=== PATIENT | female | born 1990 | race Caucasian/White ===

== ENCOUNTER 2018-06-20 03:59 | Inpatient (IN) ==
--- OUTSIDE RECORDS SUMMARY | 2018-06-20 04:05 | External Medical Summary | Continuity of Care Document ---
:1990 Author Organization [facility] Address [address] [place], [place] [id number] Phone Allergies, Adverse Reactions, Alerts Substance Reaction Severity Status PENICILLIN Break Out Unknown Active Medications Medication Instructions Dosage Effective Dates Status Comments (start - stop) Plus take 1 tablet by Not Available - Active (calcium oral route every carbonate) 27 mg day iron-1 mg tablet Problems Condition Effective Dates (start - stop) Clinical Status Maternal care for oth - abnormality and damage, unsp Endo, nutritional and metab diseases - comp preg, third tri 32 weeks gestation of - Mild hyperemesis gravidarum - 8 weeks gestation of - Irregular Menses Mild hyperemesis gravidarum - Encounter for suprvsn of normal - , first trimester Vomiting of , unspecified Less than 8 weeks gestation of - Infection oth prt genitl trct in - , third trimester 31 weeks gestation of - Maternal care for oth - abnormality and damage, unsp 29 weeks gestation of - Matern care for oth or susp poor fetl - grth, 1st tri, unsp 13 weeks gestation of - Matern care for oth or susp poor fetl - grth, 2nd tri, unsp 18 weeks gestation of - Endo, nutritional and metab diseases - comp preg, second tri Encounter for suprvsn of normal - , second trimester 26 weeks gestation of - Encntr screen for infections w sexl - mode of transmiss Encounter for screening for oth - infec/parastc diseases Encounter for suprvsn of normal - , first trimester Encounter For Other Specified - Screening 9 weeks gestation of - Encounter for suprvsn of normal - , second trimester 22 weeks gestation of - Encounter for suprvsn of normal - , second trimester 18 weeks gestation of - Encounter for suprvsn of normal - , third trimester 34 weeks gestation of - Encounter for suprvsn of normal - , third trimester 32 weeks gestation of - Procedures Procedure Date Ultrasnd preg uterus, flwup/repeat Results Test Name Date and Time Measure Units Reference Range Abnormal Flag Comments Unknown Advance Directives Directive Yes / No Effective Date File Name Unknown Encounters Encounter Practice Location Reason(s) Diagnoses Date Provider Care Team Description For Visit Members Baldemar Seymour Encounter for May- Blake Referring In Womens suprvsn of normal 9-201 Jeanette. Provider: Health EUNICE, , third 8 [address] weeks Medical Deonna, 700 1522, gestation of [facility], , [facility] Dr GIORDANO, 120, Vicente 120, [id number], Lion Seymour, [place], [place], tel:[phone]. , [place]. tel: tel: [phone] Baldemar Seymour Encounter for Apr- Blake Referring In Womens suprvsn of normal 5-201 Jeanette. Provider: Health EUNICE, , third 8 [address] [id number] weeks Medical Deonna, 700 1522, gestation of [facility], , [facility] Dr GIORDANO, 120, Vicente 120, [id number], Lion Seymour, [place], [place], tel: [phone]. , . tel: tel: [phone] Baldemar Seymour Maternal care for Judah-2 Blake Referring In Womens Ultrasound oth Jeanette. Provider: Health EUNICE, abnormality and 8 [address] damage, unspEndo, Medical Deonna, 700 1522, nutritional and [facility], metab diseases , [facility] Dr GIORDANO, comp preg, third 120, Vicente 120, [id number], tri32 weeks Lion Seymour, gestation of [place]NA GIORDANO, tel: [phone]. , [place]. tel: tel: [phone] [facility] Infection oth prt Judah-1 Harris Referring In Womens genitl trct in [place]. 700 Provider: Martha DAWSON, , third 8 Medical Lilly PO Box [email or web address] weeks Center Deonna, 700 1522, gestation of Vicente Bashir [facility], 120, Center Lion [place], Vicente 120, , Lion GIORDANO, [id number] [place], tel: , [place]. [phone]. tel: tel: [phone] Baldemar Seymour Maternal care for Judah-0 Blake Referring In Womens oth Jeanette. Provider: Martha DAWSON, abnormality and 8 [address] damage, unsp29 Medical Deonna, 700 1522, weeks gestation [facility], of , [facility] Dr GIORDANO, 120, Vicente 120, , Lion Seymour, GIULIANA GIORDANO, tel:[phone]. , [place]. tel: tel: [phone] [facility] Endo, nutritional May- Blake Referring In Womens and metab Jeanette. Provider: Health EUNICE, diseases comp 8 [address] preg, second Medical Deonna, 700 1522, triEncounter for [facility], suprvsn of normal , [facility] Dr GIORDANO, , second 120, Vicente 120, [id number], [email or web address] weeks Lion Seymour, gestation of [place]UL[place]NA GIORDANO, tel: [phone]. , [place]. tel: tel: [phone] Baldemar Seymour Encounter for Apr-1 Blake Referring In Womens suprvsn of normal Jeanette. Provider: Martha DAWSON, , second 8 [address] [id number] weeks Medical Deonna, 700 1522, gestation of [facility], , [facility] Dr GIORDANO, 120, Vicente 120, [id number], Lion Seymour, [place], [place], tel: [phone]. , [place]. tel: tel: [phone] Baldemar Seymour Encounter for Mar-1 Blake Referring In Womens suprvsn of normal Jeanette. Provider: Martha DAWSON, , second 8 [address] [id number] weeks Medical Deonna, 700 1522, [facility] , [facility] Dr GIORDANO, 120, Vicente 120, [id number], Lion Seymour, [place], [place], tel: [phone]. , [place]. tel: tel: [phone] Baldemar Seymour Matern care for Mar-1 Blake Referring In Womens Ultrasound oth or susp poor - Jeanette. Provider: Martha DAWSON, fetl grth, 2nd 8 [address] tri, [id number] weeks Medical Deonna, 700 1522, gestation of [facility], , [facility] Dr GIORDANO, 120, Vicente 120, [id number], Lion Seymour, [place], [place], tel: [phone]. , [place]. tel: tel: [phone] Seymour Matern care for Feb-1 Blake Referring In Womens oth or susp poor 2- Jeanette. Provider: Martha DAWSON, fetl grth, 1st 8 [address] PO [address] tri, unsp13 weeks Medical Deonna, 700 1522, [facility], , [facility] Dr GIORDANO, 120, Vicente 120, [id number], Lion Seymour, [place] GIULIANA, tel: [phone]. , [place]. tel: tel: [phone] [facility] Mild hyperemesis Chris-1 Sobbing Referring In Womens gravidarumEncount 5-201 Chilango. Provider: Martha DAWSON, er for suprvsn of 8 700 Lilly PO Box normal , [facility] 700 1522, first [facility] [place] Dr GIORDANO, [address], , 120, Seymour, [place], tel: [place], [phone]. [phone], tel: [place]. [phone] tel: [phone] Baldemar Seymour Encntr screen for Chris-1 Blake Referring In Womens infections w sexl 5-201 Jeanette. Provider: Martha DAWSON, mode of 8 700 [address] transmissEncounte Medical Deonna, 700 1522, r for screening [facility], for oth , [facility] Dr GIORDANO, infec/parastc 120, Vicente 120, , diseasesEncounter Lion Seymour, for suprvsn of GIUL[place]NA, GIULIANA, tel: normal , [phone]. first , [place]. tel: trimesterEncounte tel: [phone] r For Other [id number] Specified Screening9 weeks gestation of [facility] Mild hyperemesis Chris-0 Blake Referring In Womens gravidarum8 weeks 8-201 Jeanette. Provider: Martha DAWSON, gestation of 8 700 [address] Box Medical Deonna, 700 1522, [place] [address], [facility] Dr GIORDANO, 120, Vicente 120, , Lion Seymour, GIULIANA GIORDANO, tel: [phone]. , [place]. tel: tel: [phone] Baldemar Seymour Vomiting of Chris-0 Blake Referring In Womens , 2-201 Jeanette. Provider: Martha DAWSON, unspecifiedLess 8 700 [address] PO Box than 8 weeks Medical Deonna, 700 1522, gestation of [place], , [facility] Dr GIORDANO, 120, Vicente 120, [id number], Lion Seymour, GIULIANA GIORDANO, tel: [phone]. , . tel: tel: [phone] Baldemar Seymour Irregular Menses Sep-2 Deonna Referring In Womens 0-201 Lilly. Provider: Health PA, 7 700 Lilly PO Box Medical Deonna, 700 1522, [place] [address], [facility] Dr GIORDANO, 120, Vicente 120, [id number], Lion Seymour, GIULIANA GIORDANO, tel: [phone]. , . tel: tel: [phone] Family History Family Member Diagnosis Age At Onset No family history of Diabetes No family history of Venous Thrombosis No family history of Epilepsy No family history of Lung Disease No family history of Colon Cancer No family history of Cardiovascular Disease No family history of Breast Cancer No family history of Pulmonary Embolism No family history of Hypertension No family history of Osteoporosis No family history of Uterine Cancer No family history of Stroke Mother Thyroid Disorder No family history of Kidney Disease No family history of Ovarian Cancer Immunizations Vaccine Date Status Comments Tdap completed Source: New Immunization Record Td (adult) preservative free completed Source: Other Provider Tdap completed Source: Other Provider Payers Payer name Insurance type Covered republican ID Authorization(s) [facility] [id number] [facility] [id number] Social History Type Description Quantity Date Captured Unknown Vital Signs Date / Height Weight BMI Pulse Blood Temperature Respiratory Body Head BMI Time: Rate Pressure Rate Surface Circumference percentile Area Unknown Chief Complaint And Reason For Visit Unknown Chief Complaint And Reason For Visit Reason For Referral Reason For Referral Unknown Plan Of Care Date Type Action Status Appointment Marianne Leigh BOOKED Future Order: Radiology Order Ultrasound OB Follow-up ([id number]) Ordered Future Order: Radiology Order Complete OB Ultrasound > 14 Weeks Ordered ([id number]) Date Type Problem Goal Intervention Status Start Date Unknown. History Of Present Illness Encounter Date Complaint History Of Present Illness This patient has no known history of present illness Functional Status Encounter Date Functional Assessment Cognitive Assessment Unknown Medications Administered Medication Instructions Dosage Effective Dates (start - stop) Status Comments Drug Treatment Unknown Instructions Date Instruction Additional Information gestational glucose lab screening indications for ultrasound nutrition and weight gain counseling, special diet toxoplasmosis precautions (cats / raw meat) sexual activity exercise influenza vaccine environmental / work hazards travel use of any medications (including supplements, vitamins, herbs, OTC drugs) domestic violence seat belt use HIV and other routine tests risk factors identified by history anticipated course of care childbirth classes / hospital facilities hospital registration genetic testing new ob handbook
--- OUTSIDE RECORDS SUMMARY | 2018-06-20 04:05 | External Medical Summary | Continuity of Care Document ---
:1990 Author Organization [facility] Address [address] [place], [place] [id number] Phone Allergies, Adverse Reactions, Alerts Substance Reaction Severity Status PENICILLIN Break Out Unknown Active Medications Medication Instructions Dosage Effective Dates Status Comments (start - stop) Plus take 1 tablet by Not Available - Active (calcium oral route every carbonate) 27 mg day iron-1 mg tablet Monistat 3 4 % - Active (200 mg)-2 %(9 gram)vaginal pack,prefil appl and cream Problems Condition Effective Dates (start - stop) Clinical Status Infection oth prt genitl trct in - , third trimester 31 weeks gestation of - Mild hyperemesis gravidarum - 8 weeks gestation of - Encounter for suprvsn of normal - , third trimester 32 weeks gestation of - Irregular Menses Mild hyperemesis gravidarum - Encounter for suprvsn of normal - , first trimester Vomiting of , unspecified Less than 8 weeks gestation of - Maternal care for oth - abnormality and damage, unsp 29 weeks gestation of - Maternal care for oth - abnormality and damage, unsp Endo, nutritional and metab diseases - comp preg, third tri 32 weeks gestation of - Matern care for [...] second trimester 18 weeks gestation of - Procedures Procedure Date OB Visit No Charge Results Test Name Date and Time Measure Units Reference Range Abnormal Flag Comments Unknown Advance Directives Directive Yes / No Effective Date File Name Unknown Encounters Encounter Practice Location Reason(s) Diagnoses Date Provider Care Team Description For Visit Members Baldemar Seymour Encounter for Apr- Blake Referring In Womens suprvsn of normal 5-201 Jeanette. Provider: Martha DAWSON, , third 8 [address] [id number] weeks Medical Deonna, 700 1522, gestation of [facility], , [facility] Dr GIORDANO, 120, Vicente 120, , Lion Baylis, [facility], [place], tel: [phone]. , . tel: tel: [phone] Baldemar Seymour Maternal care for Apr- Blake Referring In Womens Ultrasound oth 5-201 Jeanette. Provider: Health EUNICE, abnormality and 8 700 [address] PO Box damage, unspEndo, Medical Deonna, 700 1522, nutritional and [facility], metab diseases , [facility] Dr GIORDANO, comp preg, third 120, Vicente 120, [id number], tri32 weeks Lion Seymour, gestation of [place], [place], tel: [phone]. , [place]. tel: tel: [phone] Baldemar Seymour Infection oth prt Judah-1 Harris Referring In Womens genitl trct in [place]. 700 Provider: Martha DAWSON, , third 8 Medical Lilly PO Box weeks [place] Deonna, 700 1522, gestation of Vicente Bashir [facility], 120, Center Dr GIORDANO, Lion, Vicente 120, [id number], Lion GIORDANO, [id number] [place], tel: , [place]. [phone]. tel: tel: [phone] Baldemar Seymour Maternal care for Judah-0 Blake Referring In Womens oth Jeanette. Provider: Martha DAWSON, abnormality and 8 700 Lilly PO Box damage, unsp29 Medical Deonna, 700 1522, [facility] , [facility] Dr GIORDANO, 120, Vicente 120, [id number], Lion Seymour, GIULIANA GIORDANO, tel:[phone]. , [place]. tel: tel: [phone] Baldemar Seymour Endo, nutritional May-1 Blake Referring In Womens and metab Jeanette. Provider: Martha DAWSON, diseases comp 8 700 Lilly PO Box preg, second Medical Deonna, 700 1522, triEncounter for [facility], suprvsn of normal , [facility] Dr GIORDANO, , second 120, Vicente 120, [id number] weeks Lion Seymour, gestation of GIUL[place]NA GIORDANO, tel: [phone]. , [place]. tel: tel: [phone] Baldemar Seymour Encounter for Apr-1 Blake Referring In Womens suprvsn of normal Jeanette. Provider: Martha DAWSON, , second 8 700 Lilly PO Box [id number] weeks Medical Deonna, 700 1522, gestation of [facility], , [facility] Dr GIORDANO, 120, Vicente 120, [id number], Lion Seymour, GIULIANA GIORDANO, tel:[phone]. , [place]. tel: tel: [phone] Baldemar Seymour Encounter for Jan-1 Blake Referring In Womens suprvsn of normal Jeanette. Provider: Martha DAWSON, , second 8 700 Lilly PO Box [id number] weeks Medical Deonna, 700 1522, gestation of [facility], , [facility] Dr GIORDANO, 120, Vicente 120, [id number], Lion Seymour, [place], [place], tel: [phone]. , [place]. tel: tel: [phone] Baldemar Seymour Matern care for Jan- Blake Referring In Womens Ultrasound oth or susp poor Jeanette. Provider: Martha DAWSON, fetl grth, 2nd 8 700 Lilly PO Box tri, [id number] weeks Medical Deonna, 700 1522, gestation of [facility], , [facility] Dr GIORDANO, 120, Vicente 120, [id number], Lion Seymour, [place], [place], tel: [phone]. , [place]. tel: tel: [phone] Baldemar Seymour Matern care for Fe- Blake Referring In Womens oth or susp poor 2- Jeanette. Provider: Martha DAWSON, fetl grth, 1st 8 700 Lilly PO Box tri, unsp13 weeks Medical Deonna, 700 1522, gestation of [facility], , [facility] Dr GIORDANO, 120, Vicente 120, [id number], Lion Seymour, [place], [place], tel: [phone]. , [place]. tel: tel: [phone] Baldemar Seymour Mild hyperemesis Sobbing Referring In Womens gravidarumEncount 5-201 Chilango. Provider: Martha DAWSON, er for suprvsn of 8 700 Lilly PO Box normal , Medical Deonna, 700 1522, first trimester [facility], [facility] [place] Dr GIORDANO, [address], [id number], Shai, Seymour, [place], tel: [place], [phone]. [phone], tel: [place]. [phone] tel: [phone] Baldemar Seymour Encntr screen for Chris-1 Blake Referring In Womens infections w sexl 5-201 Jeanette. Provider: Martha DAWSON, mode of 8 700 Lilly PO Box transmissEncounte Medical Deonna, 700 1522, r for screening [facility], for otkhloe Bashir, [facility] Dr GIORDANO, infec/parastc 120, Vicente 120, , diseasesEncounter Lion Baylis, for suprvsn of [place], [place], tel: normal , [phone]. [facility] , . tel: trimesterEncounte tel: [phone] r For Other [id number] Specified Screening9 weeks gestation of [facility] Mild hyperemesis Chris-0 Blake Referring In Womens gravidarum8 weeks 8-201 Jeanette. Provider: Martha DAWSON, gestation of 8 700 Lilly [address] Box Medical Deonna, 700 1522, [place] [address], [facility] Dr GIORDANO, 120, Vicente 120, [id number], Lion Seymour, [place], tel: [phone]. , [place]. tel: tel: [phone] Baldemar Seymour Vomiting of Chris-0 Blake Referring In Womens , 2-201 Jeanette. Provider: Martha DAWSON, unspecifiedLess 8 700 Lilly PO Box than 8 weeks Medical Deonna, 700 1522, gestation of [facility], , [facility] Dr GIORDANO, 120, Vicente 120, [id number], Lion Seymour, [place], tel: [phone]. , [place]. tel: tel: [phone] Baldemar Seymour Irregular Menses Sep-2 Deonna Referring In Womens 0-201 Lilly. Provider: Martha DAWSON, 7 700 Lilly PO Box Medical Deonna, 700 1522, [address], [facility] Dr GIORDANO, 120, Vicente 120, [id number], Lion Seymour, GIULIANA GIORDANO, tel:[phone]. [phone] , . tel: tel: [phone] Family History Family Member Diagnosis Age At [...] Insurance type Covered republican ID Authorization(s) [facility] [id number] [facility] [id number] Social History Type Description Quantity Date Captured Alcohol Use Details No Caffeine Use Details Unknown Tobacco Use Status Unknown Smoking Status Never smoker Vital Signs Date / Height Weight BMI Pulse Blood Temperature Respiratory Body Head BMI Time: Rate Pressure Rate Surface Circumference percentile Area 204.80 36.2 129/79 2018 lbs 7 mm[Hg] 3:00 kg/m PM eter (2) Chief Complaint And Reason For Visit Unknown Chief Complaint And Reason For Visit Reason For Referral Reason For Referral Unknown Plan Of Care Date Type Action Status Appointment Marianne Leigh BOOKED Future Order: Radiology Order Ultrasound OB Follow-up ([id number]) Ordered Future Order: Radiology Order Complete OB Ultrasound > 14 Weeks Ordered ([id number]) Date Type Problem Goal Intervention Status Start [...]
--- OUTSIDE RECORDS SUMMARY | 2018-06-20 04:05 | External Medical Summary | Continuity of Care Document ---
:1990 Author Organization [facility] [employer] Address [address] [place], [place] [id number] Phone Allergies, Adverse Reactions, Alerts Substance Reaction Severity Status PENICILLIN Break Out Unknown Active Medications Medication Instructions Dosage Effective Dates Status Comments (start - stop) SUDAFED (unknown take 1 tablet by - Active strength) ORAL route every 6 hours as needed Plus take 1 tablet by Not Available - Active (calcium oral route every carbonate) 27 mg day iron-1 mg tablet Tums 200 mg chew 1 by Oral route Not Available - Active calcium (500 mg) as needed chewable tablet Problems Condition Effective Dates (start - stop) Clinical Status Encounter for suprvsn of normal - , third trimester 34 weeks gestation of - Mild hyperemesis gravidarum - 8 weeks gestation of - Encounter for suprvsn of normal - , second trimester 18 weeks gestation of - Encounter for suprvsn of normal - , third trimester 35 weeks gestation of - Irregular Menses Mild [...] third trimester 32 weeks gestation of - Encounter for suprvsn of normal - , third trimester Encounter For Screening For - Streptococcus B 36 weeks gestation of - Procedures Procedure Date OB Visit No Charge Results Test Name Date and Time Measure Units Reference Range Abnormal Flag Comments Unknown Advance Directives Directive Yes / No Effective Date File Name Unknown Encounters Encounter Practice Location Reason(s) Diagnoses Date Provider Care Team Description For Visit Members Baldemar Seymour Encounter for Blake Referring In Womens suprvsn of normal 4-201 Jeanette. Provider: Health PA, , third 8 [address] [facility] Medical Deonna, 700 1522, r For Center [facility] Jing, Screening For , [place] [facility] Dr GIORDANO, Streptococcus B36 120, Vicente 120, [id number], weeks gestation Lion [place], [place] of GIULIANA GIORDANO, tel: [phone]. [phone] , [place]. tel: tel: [phone] Baldemar Seymour Encounter for Shreyas-1 Blake Referring In Womens suprvsn of normal 7-201 Jeanette. Provider: Health EUNICE, , third 8 [address] [email or web address] weeks Medical Deonna, 700 1522, [facility], , [facility] Dr GIORDANO, 120, Vicente 120, [id number], [place], [place], [place], tel:[phone]. , [place]. tel: tel: [phone] Baldemar Seymour Encounter for Shreyas-0 Blake Referring In Womens suprvsn of normal 9-201 Jeanette. Provider: Martha DAWSON, , third 8 [address] [id number] weeks Medical Deonna, 700 1522, [facility], , [facility] Dr GIORDANO, 120, Vicente 120, , Lion [place], [place], [place], tel:[phone]. , [place]. tel: tel: [phone] Baldemar Seymour Encounter for Judah-2 Blake Referring In Womens suprvsn of normal 5-201 Jeanette. Provider: Martha DAWSON, , third 8 [address] [email or web address] weeks Medical Deonna, 700 1522, [facility], , [facility] Dr GIORDANO, 120, Vicente 120, , Lion [place], [place], [place], tel:[phone]. , [place]. tel: tel: [phone] Baldemar Seymour Maternal care for Judah-2 Blake Referring In Womens Ultrasound oth 5-201 Jeanette. Provider: Health EUNICE, abnormality and 8 [address] damage, unspEndo, Medical Deonna, 700 1522, nutritional and [facility], metab diseases , [facility] Dr GIORDANO, comp preg, third 120, Vicente 120, [id number], tri32 weeks Lion Se[place], gestation of GIUL[place]NA GIORDANO, tel:+ [phone]. , [place]. tel: tel: [phone] [facility] Infection oth prt Judah-1 Harris Referring In Womens genitl trct in [facility] 700 Provider: Martha DAWSON, , third 8 Medical Lilly PO Box [id number] weeks [place], 700 1522, gestation of Vicente Bashir [facility] Jing, 120, Center Dr GIORDANO, Lion, Vicente 120, , Lion GIORDANO, [id number] [place], tel: , [place]. [phone]. tel: tel: [phone] Baldemar Seymour Maternal care for Judah-0 Blake Referring In Womens oth Jeanette. Provider: Martha DAWSON, abnormality and 8 [address] damage, unsp29 Medical Deonna, 700 1522, weeks gestation [facility], of , [facility] Dr GIORDANO, 120, Vicente 120, , Lion Seymour, GIULIANA GIORDANO, tel:[phone]. , [place]. tel: tel: [phone] [facility]o, nutritional May-1 Blake Referring In Womens and metab Jeanette. Provider: Health EUNICE, diseases comp 8 700 [address] preg, second Medical Deonna, 700 1522, triEncounter for [facility], suprvsn of normal , [facility] Dr GIORDANO, , second 120, Vicente 120, [id number], weeks Lion [place], [place] gestation of GIULIANA GIORDANO, tel: [phone]. , [place]. tel: tel: [phone] Baldemar Seymour Encounter for Apr-1 Blake Referring In Womens suprvsn of normal Jeanette. Provider: Martha DAWSON, , second 8 [address] [email or web address] weeks Medical Deonna, 700 1522, gestation of [facility] Jing, , [facility] Dr GIORDANO, 120, Vicente 120, , Lion Se[place]our, GIULIANA GIORDANO, tel: [phone]. , [place]. tel: tel: [phone] Baldemar Seymour Encounter for Mar-1 Blake Referring In Womens suprvsn of normal Jeanette. Provider: Martha DAWSON, , second 8 [address] [id number] weeks Medical Deonna, 700 1522, gestation of [facility], , [facility] Dr GIORDANO, 120, Vicente 120, [id number], Lion [place], [place], [place], tel: [phone]. , [place]. tel: tel: [phone] Baldemar Seymour Matern care for Jan- Blake Referring In Womens Ultrasound oth or susp poor Jeanette. Provider: Martha DAWSON, fetl grth, 2nd 8 [address] tri, [id number] weeks Medical Deonna, 700 1522, gestation of [facility], , [facility] Dr GIORDANO, 120, Vicente 120, [id number], Lion Seymour, GI[place]NA GIORDANO, tel: [phone]. , [place]. tel: tel: [phone] Baldemar Seymour Matern care for Feb- Blake Referring In Womens oth or susp poor 2 Jeanette. Provider: Martha DAWSON, fetl grth, 1st 8 [address] tri, unsp13 weeks Medical Deonna, 700 1522, [facility], , [facility] Dr GIORDANO, 120, Vic[place] 120, [id number], Lion [place], [place], [place], tel: [phone]. , [place]. tel: tel: [phone] Baldemar Seymour Mild hyperemesis Chris- Sobbing Referring In Womens gravidarumEncount 5-201 Chilango. Provider: Martha DAWSON, er for suprvsn of 8 700 [address] PO Box normal , Medical Deonna, 700 1522, first trimester [facility] Jing, [facility], [place] [address] GIORDANO, [address], [id number], Shai, [place], [place], tel: [place], [phone]. [phone], tel: [place]. [phone] tel: [phone] Baldemar Seymour Encntr screen for Chris-1 Blake Referring In Womens infections w sexl 5-201 Jeanette. Provider: Martha DAWSON, mode of 8 700 [address] PO Box transmissEncounte Medical Deonna, 700 1522, r for screening [place], for oth , [facility] Center Dr GIORDANO, infec/parastc 120, Vicente 120, , diseasesEncounter [place], for suprvsn of GIULIANA GIORDANO, tel: normal , [phone]. [facility] , . tel: trimesterEncounte tel: [phone] r For Other [id number] Specified Screening9 weeks gestation of [facility] Mild hyperemesis Chris-0 Blake Referring In Womens gravidarum8 weeks 8-201 Jeanette. Provider: Martha DAWSON, gestation of 8 700 [address] PO Box Medical Deonna, 700 1522, [place] [address], [facility] Dr GIORDANO, 120, Vicente 120, [id number], Lion Seymour, GIUL[place]NA GIORDANO, tel: [phone]. , [place]. tel: tel: [phone] Baldemar Seymour Vomiting of Chris-0 Blake Referring In Womens , 2-201 Jeanette. Provider: Martha DAWSON, unspecifiedLess 8 700 [address] PO Box than 8 weeks Medical Deonna, 700 1522, gestation of [place], , [facility] Center Dr GIORDANO, 120, Vicente 120, [id number], Lion [place], [place], tel: [phone]. , [place]. tel: tel: [phone] Baldemar Seymour Irregular Menses Sep-2 Deonna Referring In Womens 0-201 Lilly. Provider: Martha DAWSON, 7 700 Lilly PO Box Medical Deonna, 700 1522, [place] [address], [place] Dr GI[place]NA, 120, Vicente 120, [id number], Lion Se[place]our, GIULIANA GIORDANO, tel: [phone]. [phone] , [place]. tel: tel: [phone] Family History Family Member Diagnosis Age At [...] Provider Payers Payer name Insurance type Covered green party ID Authorization(s) [facility] [id number] [facility] [id number] Social History Type Description Quantity Date Captured Alcohol Use Details No Caffeine Use Details Unknown Tobacco Use Status Unknown Smoking Status Never smoker Vital Signs Date / Height Weight BMI Pulse Blood Temperature Respiratory Body Head BMI Time: Rate Pressure Rate Surface Circumference percentile Area 213.30 37.7 / lbs 8 mm[Hg] 2:59 kg/m PM eter (2) Chief Complaint And Reason For Visit Unknown Chief Complaint And Reason For Visit Reason For Referral Reason For Referral Unknown Plan Of Care Date Type Action Status Appointment Marianne Leigh BOOKED Future Order: Radiology Order Ultrasound OB Follow-up ([id number]) Ordered Future Order: Radiology Order Complete OB Ultrasound > 14 Weeks Ordered ([id number]) Date Type Problem Goal Intervention Status Start Date Unknown. History Of Present Illness Encounter Date Complaint History Of Present Illness This patient has no known history of present illness Functional Status Encounter Date Functional Assessment Cognitive Assessment Unknown Medications Administered Medication Instructions Dosage Effective Dates (start - stop) Status Comments Drug Treatment Unknown Instructions Date Instruction Additional Information labor signs group B strep screening gestational glucose lab screening indications for ultrasound [...]
--- OUTSIDE RECORDS SUMMARY | 2018-06-20 04:05 | External Medical Summary | Continuity of Care Document ---
:1990 Author Organization [facility] Address [address] [place], [place] [id number] Phone Allergies, Adverse Reactions, Alerts Substance Reaction [...] second trimester 22 weeks gestation of - Mild hyperemesis gravidarum - 8 weeks gestation of - Irregular Menses Mild hyperemesis gravidarum - Encounter for suprvsn of normal - , first trimester Vomiting of , unspecified Less than 8 weeks gestation of - Matern care for oth or susp poor fetl - grth, 1st tri, unsp 13 weeks gestation of - Matern care for oth or susp poor fetl - grth, 2nd tri, unsp 18 weeks gestation of - Encntr screen for [...] For Visit Members Baldemar Seymour Encounter for Apr-1 Blake Referring In Womens suprvsn of normal Jeanette. Provider: Martha DAWSON, , second 8 700 [address] [id number] weeks Medical Deonna, 700 1522, gestation of [facility], , [facility] Dr GIORDANO, 120, Vicente 120, , Lion [place], [place]NA GIORDANO, tel: [phone]. , [place]. tel: tel: [phone] Baldemar Seymour Encounter for Mar-1 Blake Referring In Womens suprvsn of normal Jeanette. Provider: Martha DAWSON, , second 8 700 [address] [email or web address] weeks Medical Deonna, 700 1522, gestation of [facility], , [facility] Dr GIORDANO, 120, Vicente 120, [id number], Lion [place], GIUL[place]NA GIORDANO, tel: [phone]. , [place]. tel: tel: [phone] Baldemar Seymour Matern care for Mar-1 Blake Referring In Womens Ultrasound oth or susp poor Jeanette. Provider: Martha DAWSON, fetl grth, 2nd 8 700 Lilly PO Box tri, [id number] weeks Medical Deonna, 700 1522, gestation of [facility], , [facility] Dr GIORDANO, 120, Vicente 120, [id number], Lion [place], GIUL[place]NA GIORDANO, tel: [phone]. , [place]. tel: tel: [phone] Baldemar Seyomur Matern care for Feb-1 Blake Referring In Womens oth or susp poor Jeanette. Provider: Martha DAWSON fetl grth, 1st 8 700 [address] PO Box tri, unsp13 weeks Medical Deonna, 700 1522, [facility] , [facility] Dr GIORDANO, 120, Vicente 120, [id number], Lion [place], GIUL[place]NA GIULIANA, tel: [phone]. , [place]. tel: tel: [phone] [facility] Mild hyperemesis Chris-1 Sobbing Referring In Womens gravidarumEncount 5-201 Chilango. Provider: Martha DAWSON, er for suprvsn of 8 700 Lilly PO Box normal , [facility] 1522, first [facility] [place] [address] GIORDANO, [address], , 120, [place], [place], tel: [place], [phone]. [phone], tel: [place]. [phone] tel: [phone] Baldemar Seymour Encntr screen for Chris-1 Blake Referring In Womens infections w sexl 5-201 Jeanette. Provider: Martha DAWSON, mode of 8 700 Lilly PO Box transmissEncounte Medical Deonna, 700 1522, r for screening [facility], for oth , [facility] Center Dr GIORDANO, infec/parastc 120, Vicente 120, , diseasesEncounter Lion [place], for suprvsn of GIULIANA, GIULIANA, tel: normal , [phone]. first , [place]. tel: trimesterEncounte tel: [phone] r For Other [id number] Specified Screening9 weeks gestation of [facility] Mild hyperemesis Chris-0 Blake Referring In Womens gravidarum8 weeks 8-201 Jeanette. Provider: Martha DAWSON, gestation of 8 700 [address] PO Box Medical Deonna, 700 1522, [place] [address], [facility] Center Dr GIORDANO, 120, Vicente 120, , Lion Se[place]our, GIULIANA GIORDANO, tel: [phone]. , [place]. tel: tel: [phone] Baldemar Seymour Vomiting of Chris-0 Blake Referring In Womens , 2-201 Jeanette. Provider: Martha DAWSON, unspecifiedLess 8 700 Lilly PO Box than 8 weeks Medical Deonna, 700 1522, gestation of [place], , [facility] Dr GIORDANO, 120, Vic[place] 120, [id number], Lion [place], [place], GI[place], tel: [phone]. , . tel: tel: [phone] Baldemar Seymour Irregular Menses Sep-2 Deonna Referring In Womens 0-201 Lilly. Provider: Health PA, 7 700 Lilly PO Box Medical Deonna, 700 1522, [place] [address], [facility] Dr GIORDANO, 120, Vicente 120, [id number], Lion [place], [place], [place], tel: [phone]. , . tel: tel: [phone] Family History Family Member Diagnosis Age At [...] Ovarian Cancer Immunizations Vaccine Date Status Comments Td (adult) preservative free completed Source: Other Provider Payers Payer name Insurance type Covered green party ID Authorization(s) JIMBO GIORDANO [id number] Social History Type Description Quantity Date Captured Alcohol Use Details No Caffeine Use Details Unknown Tobacco Use Status Unknown Smoking Status Never smoker Vital Signs Date / Height Weight BMI Pulse Blood Temperature Respiratory Body Head BMI Time: Rate Pressure Rate Surface Circumference percentile Area 189.30 33.5 125/78 -2018 lbs 3 mm[Hg] 3:35 kg/m PM eter (2) Chief Complaint And Reason For Visit Unknown Chief Complaint And Reason For Visit Reason For Referral Reason For Referral Unknown Plan Of Care Date Type Action Status Appointment Pema Leigh BOOKED Future Order: Radiology Order Complete OB Ultrasound > 14 Weeks Ordered ([id number]) Date Type Problem Goal Intervention Status Start Date Unknown. History Of Present Illness Encounter Date Complaint History Of Present Illness This patient has no known history of present illness Functional Status Encounter Date Functional Assessment Cognitive Assessment Unknown Medications Administered Medication Instructions Dosage Effective Dates (start - stop) Status Comments Drug Treatment Unknown Instructions Date Instruction Additional Information indications for ultrasound nutrition and weight gain [...]
--- OUTSIDE RECORDS SUMMARY | 2018-06-20 04:05 | External Medical Summary | Continuity of Care Document ---
:1990 Author Organization [facility] [employer] [facility] Address [address] [place], [place] [id number] Phone Allergies, Adverse Reactions, Alerts Substance Reaction [...] Effective Dates (start - stop) Clinical Status Matern care for oth or susp poor fetl - grth, 2nd tri, unsp 18 weeks gestation of - Mild hyperemesis gravidarum - 8 weeks gestation of - Encounter for suprvsn of normal - , second trimester 18 weeks gestation of - Irregular Menses Mild hyperemesis gravidarum - Encounter for suprvsn of normal - , first trimester Vomiting of , unspecified Less than 8 weeks gestation of - Matern care for oth or susp poor fetl - grth, 1st tri, unsp 13 weeks gestation of - Encntr screen for infections w sexl - mode of transmiss Encounter for screening for oth - infec/parastc diseases Encounter for suprvsn of normal - , first trimester Encounter For Other Specified - Screening 9 weeks gestation of - Procedures Procedure Date Ultrasound exam of preg uterus, complete Results Test Name Date and Time Measure Units Reference Range Abnormal Flag Comments Unknown Advance Directives Directive Yes / No Effective Date File Name Unknown Encounters Encounter Practice Location Reason(s) Diagnoses Date Provider Care Team Description For Visit Members Baldemar Seymour Encounter for Jan- Blake Referring In Womens suprvsn of normal Jeanette. Provider: Martha DAWSON, , second 8 700 [address] [id number] weeks Medical Deonna, 700 1522, [facility] , [facility] Dr GIORDANO, 120, [place] 120, , Lion [place], GIULIANA GIORDANO, tel: [phone]. , [place]. tel: tel: [phone] Baldemar Seymour Matern care for Jan- Blake Referring In Womens Ultrasound oth or susp poor Jeanette. Provider: Martha DAWSON, fetl grth, 2nd 8 700 Lilly PO Box tri, unsp18 weeks Medical Deonna, 700 1522, [facility], , [facility] Dr GIORDANO, 120, Vicente 120, , Lion [place], GIULIANA GIORDANO, tel: [phone]. , [place]. tel: tel: [phone] Baldemar Seymour Matern care for Dec- Blake Referring In Womens oth or susp poor Jeanette. Provider: Martha DAWSON, fetl grth, 1st 8 700 Lilly PO Box tri, unsp13 weeks Medical Deonna, 700 1522, [facility], , [facility] Dr GIORDANO, 120, Vicente 120, [id number], Lion [place], GIULIANA GIORDANO, tel: [phone]. , [place]. tel: tel: [phone] Baldemar Seymour Mild hyperemesis Chris- Sobbing Referring In Womens gravidarumEncount 5-201 Chilango. Provider: Martha DAWSON, er for suprvsn of 8 700 Lilly PO Box normal , Medical Deonna, 700 1522, first trimester [facility], [facility] [place] [address] GIORDANO, [address], [id number], Shai, [place], [place], tel: [place], [phone]. [phone], tel: [place]. [phone] tel: [phone] Baldemar Seymour Encntr screen for Chris-1 Blake Referring In Womens infections w sexl 5-201 Jeanette. Provider: Martha DAWSON, mode of 8 700 Lilly PO Box transmissEncounte Medical Deonna, 700 1522, r for screening [place] [facility], for oth , [facility] Center Dr GIORDANO, infec/parastc 120, Vicente 120, , diseasesEncounter Lion [place], for suprvsn of GIULIANA GIORDANO, tel: normal , [phone]. [facility] , . tel: trimesterEncounte tel: [phone] r For Other [id number] Specified Screening9 weeks gestation of [facility] Mild hyperemesis Chris-0 Blake Referring In Womens gravidarum8 weeks 8-201 Jeanette. Provider: Martha ADWSON, gestation of 8 700 Lilly PO Box Medical Deonna, 700 1522, [place] [address], [facility] Dr GIORDANO, 120, Vicente 120, [id number], Lion Seymour, GIULIANA GIORDANO, tel: [phone]. , [place]. tel: tel: [phone] Baldemar Seymour Vomiting of Chris-0 Blake Referring In Womens , 2-201 Jeanette. Provider: Martha DAWSON, unspecifiedLess 8 700 Lilly PO Box than 8 weeks Medical Deonna, 700 1522, gestation of [place] [facility], , [facility] Dr GIORDANO, 120, Vic[place] 120, [id number], Lion [place], [place], tel: [phone]. , [place]. tel: tel: [phone] Baldemar Seymour Irregular Menses Sep-2 Deonna Referring In Womens 0-201 Lilly. Provider: Martha DAWSON, 7 700 Lilly PO Box Medical Deonna, 700 1522, [place] [address], [place] Dr GIULIANA, 120, Vicente 120, [id number], Lion Seymour, GIULIANA GIORDANO, tel:[phone]. [phone] , [place]. tel: tel: [phone] Family History Family Member Diagnosis Age At [...] Provider Payers Payer name Insurance type Covered democrat ID Authorization(s) [facility] [id number] Social History Type Description Quantity Date Captured [...] Marianne Leigh BOOKED Future Order: Radiology Order Complete OB Ultrasound > 14 Weeks Ordered ([id number]) Date Type Problem Goal Intervention Status Start [...]
--- OUTSIDE RECORDS SUMMARY | 2018-06-20 04:05 | External Medical Summary | Continuity of Care Document ---
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 Provider: Health PA, , third 8 [address] [email or web address] weeks Medical Deonna, 700 1522, gestation of [facility] [place], Dr, [facility] Dr [place], 120, Vicente 120, [id number], Lion Seymour, [place] GIORDANO, tel:[phone]. , [place]. tel: tel: [phone] Baldemar Seymour Streptococcus B Shreyas-3 Blake Referring In Womens carrier state 1-201 Jeanette. Provider: Martha DAWSON, complicating 8 700 [address] [facility] 700 1522, r for suprvsn of [facility], normal , , [facility] Dr GIORDANO, third [email or web address] 120, Vicente 120, [id number], weeks gestation Lion Seymour, [place] of [place] GIORDANO, tel:[phone]. , [place]. tel: tel: [phone] Seymour Encounter for Shreyas-2 Blake Referring In Womens suprvsn of normal 4-201 Jeanette. Provider: Martha DAWSON, , third 8 700 Lilly PO Box [facility] Medical Deonna, 700 1522, r For [facility], Screening For Dr, [facility] Dr GIORDANO, Streptococcus B36 120, Vicente 120, [id number], weeks gestation Lion Seymour, [place] of [place] GIORDANO, tel: [phone]. , [place]. tel: tel: [phone] Seymour Encounter for Shreyas-1 Blake Referring In Womens suprvsn of normal 7-201 Jeanette. Provider: Martha DAWSON, , third 8 700 [address] [email or web address] weeks Medical Deonna, 700 1522, gestation of [facility], , [facility] Dr GIORDANO, 120, Vicente 120, [id number], Lion Seymour, [place] GIORDANO, tel:[phone]. , [place]. tel: tel: [phone] Baldemar Seymour Encounter for Shreyas-0 Blake Referring In Womens suprvsn of normal 9-201 Jeanette. Provider: Martha DAWSON, , third 8 700 [address] [email or web address] weeks Medical Deonna, 700 1522, gestation of [facility], , [facility] Dr GIORDANO, 120, Vicente 120, [id number], Lion Seymour, [place], [place], tel:+ [phone]. , [place]. tel: tel: [phone] Baldemar Seymour Encounter for Judah-2 Blake Referring In Womens suprvsn of normal Jeanette. Provider: Health EUNICE, , third 8 700 [address] [email or web address] weeks Medical Deonna, 700 1522, gestation of [facility], , [facility] Dr GIORDANO, 120, Vicente 120, [id number], Lion Seymour, GIULIANA, [place], tel:+ [phone]. , [place]. tel: tel: [phone] Baldemar Seymour Maternal care for Judah-2 Blake Referring In Womens Ultrasound oth Jeanette. Provider: Health EUNICE, abnormality and 8 [address] damage, unspEndo, Medical Deonna, 700 1522, nutritional and [facility], metab diseases , [facility] Dr GIORDANO, comp preg, third 120, Vicente 120, [id number], tri32 weeks Lion Seymour, gestation of [place]NA GIORDANO, tel:[phone]. , [place]. tel: tel: [phone] Baldemar Seymour Infection ot prt Judah-1 Harris Referring In Womens genitl trct in [place] [address] Provider: Health EUNICE, , third 8 Medical Lilly PO Box [email or web address] weeks [place] Deonna, 700 1522, gestation of Dr [facility] [place], 120, Center Dr GIORDAON, Lion, Vicente 120, [id number], Lion GIORDANO, [id number] [place], tel: , [place]. [phone]. tel: tel: [phone] Baldemar Seymour Maternal care for Judah-0 Blake Referring In Womens oth Jeanette. Provider: Health EUNICE, abnormality and 8 700 [address] damage, unsp29 Medical Deonna, 700 1522, [facility], of , [facility] Dr GIORDANO, 120, Vicente 120, [id number], Lion Seymour, [place], [place], tel:+ [phone]. , [place]. tel: tel: [phone] Baldemar Seymour Endo, nutritional May- Blake Referring In Womens and metab 4-201 Jeanette. Provider: Health EUNICE, diseases comp 8 700 [address] PO Box preg, second Medical Deonna, 700 1522, triEncounter for [facility], suprvsn of normal , [facility] Dr GIORDANO, , second 120, Vicente 120, [id number], [id number] weeks Lion Seymour, gestation of [place], [place], tel: [phone]. , [place]. tel: tel: [phone] Baldemar Seymour Encounter for Apr- Blake Referring In Womens suprvsn of normal 6-201 Jeanette. Provider: Martha DAWSON, , second 8 700 [address] Box [email or web address] weeks Medical Deonna, 700 1522, gestation of [facility] [place], , [facility] Dr GIORDANO, 120, Vic[place] 120, [id number], Lion Seymour, [place], [place], tel:[phone]. , [place]. tel: tel: [phone] Baldemar Seymour Encounter for Jan- Blake Referring In Womens suprvsn of normal 9-201 Jeanette. Provider: Martha DAWSON, , second 8 700 Lilly PO Box [email or web address] weeks Medical Deonna, 700 1522, gestation of [facility] [place], , [facility] Dr GIORDANO, 120, Vic[place] 120, [id number], Lion Seymour, [place]UL[place]NA, [place], tel: [phone]. , [place]. tel: tel: [phone] Seymour Matern care for Blake Referring In Womens Ultrasound oth or susp poor 9-201 Jeanette. Provider: viktoriya Cline, 2nd 8 700 [address] PO Box tri, unsp18 weeks Medical Deonna, 700 1522, gestation of [facility], , [facility] Dr GIORDANO, 120, Vicente 120, [id number], Lion Seymour, GIULIANA GIORDANO, tel: [phone]. , [place]. tel: tel: [phone] Baldemar eSymour Matern care for Dec- Blake Referring In Womens oth or susp poor 2-201 Jeanette. Provider: viktoriya Cline, 1st 8 700 [address] PO [address] tri, unsp13 weeks Medical Deonna, 700 1522, gestation of [facility], , [facility] Dr GIORDANO, 120, Vicente 120, , Lion Seymour, GIULIANA GIORDANO, tel: [phone]. , [place]. tel: tel: [phone] Baldemar Seymour Mild hyperemesis Sobbing Referring In Womens gravidarumEncount 5-201 Chilango. Provider: Martha DAWSON, er for suprvsn of 8 700 Lilly PO Box normal , Medical Deonna, 700 1522, first trimester [facility] Dr GIORDANO, [address], , Lion Gibbons, GIULIANA Seymour, tel: GIUL[place]NA, [phone]. [phone], tel: [place]. [phone] tel: [phone] Baldemar Seymour Encntr screen for Blake Referring In Womens infections w sexl 5-201 Jeanette. Provider: Martha DAWSON, mode of 8 700 [address] PO Box transmissEncounte [facility] Deonna, 700 1522, r for screening [facility], for oth , [facility] Dr GIORDANO, infec/parastc 120, Vicente 120, , diseasesEncounter Lion Seymour, for suprvsn of GIUL[place]NA GIORDANO, tel: normal , [phone]. first , [place]. tel: trimesterEncounte tel: [phone] r For Other [phone] Specified Screening9 weeks gestation of [facility] Mild hyperemesis Chris-0 Blake Referring In Womens gravidarum8 weeks 8-201 Jeanette. Provider: Martha DAWSON, gestation of 8 700 Lilly PO Box Medical Deonna, 700 1522, [place] [address], [facility] Dr GIORDANO, 120, Vicente 120, [id number], Lion [place], [place], [place], tel: [phone]. , . tel: tel: [phone] [facility] Vomiting of Chris-0 Blake Referring In Womens , 2-201 Jeanette. Provider: Martha DAWSON, unspecifiedLess 8 700 Lilly PO Box than 8 weeks Medical Deonna, 700 1522, gestation of [place] [facility], , [facility] Dr GIORDANO, 120, Vicente 120, [id number], Lion [place], [place], [place], tel: [phone]. , . tel: tel: [phone] [facility] Irregular Menses Sep-2 Deonna Referring In Womens 0-201 Lilly. Provider: Martha DAWSON, 7 700 Lilly PO Box Medical Deonna, 700 1522, [place] [address], [facility] Dr GIORDANO, 120, Vicente 120, [id number], Lion Seymour, [place], [place], tel: [phone]. , . tel: tel: [phone] Family History Family Member Diagnosis Age At [...] Provider Payers Payer name Insurance type Covered constitution party ID Authorization(s) [facility] [id number] [facility] [id number] Social History Type Description Quantity Date Captured [...] Future Order: Radiology Order Ultrasound OB Follow-up ([id number]) Ordered Future Order: Radiology Order Complete OB Ultrasound > 14 Weeks Ordered ([id number]) Date Type Problem Goal Intervention Status Start [...]
--- OUTSIDE RECORDS SUMMARY | 2018-06-20 04:05 | External Medical Summary | Continuity of Care Document ---
:1990 Author Organization [facility] Address [address] [place], [place] [id number] Phone Allergies, Adverse Reactions, Alerts Substance Reaction Severity Status PENICILLIN Break Out Unknown Active Medications Medication Instructions Dosage Effective Dates Status Comments (start - stop) metoclopramide 10 mg take 1 (10MG) by - Active tablet oral route every 8 hours Diclegis 10 mg-10 mg take 1 tablet by - Active tablet,delayed oral route every release day in the morning, 1 tablet in the mid-afternoon, and 2 tablets at bedtime promethazine 25 mg take 1 tablet by 25 MG - Active tablet oral route every day at bedtime Plus take 1 tablet by Not Available - Active (calcium carbonate) oral route every 27 mg iron-1 mg day tablet Problems Condition Effective Dates (start - stop) Clinical Status Vomiting of , unspecified Less than 8 weeks gestation of - Mild hyperemesis gravidarum - 8 weeks gestation of - Irregular Menses Mild hyperemesis gravidarum - Encounter for suprvsn of normal - , first trimester Encntr screen for infections w sexl - mode of transmiss Encounter for screening for oth - infec/parastc diseases Encounter for suprvsn of normal - , first trimester Encounter For Other Specified - Screening 9 weeks gestation of - Procedures Procedure Date Unknown Results Test Name Date and Time Measure Units Reference Range Abnormal Flag Comments Unknown Advance Directives Directive Yes / No Effective Date File Name Unknown Encounters Encounter Practice Location Reason(s) Diagnoses Date Provider Care Team Description For Visit Members Baldemar Seymour Mild hyperemesis Chris-1 Sobbing Referring In Womens gravidarumEncounter 5-201 Ch[place]. Provider: Martha DAWSON, for suprvsn of 8 700 [address] PO Box normal , Medical Deonna, 700 1522, first trimester [place] [facility] [place] [address] GIORDANO, [address], , Shai, Seymour, GIULIANA Seymour, tel: GIULIANA, [phone], tel:+ [phone]. [phone] tel: [phone] [facility] Encntr screen for Nov-1 Blake Referring In Womens infections w sexl 5-201 Jeanette. Provider: Martha DAWSON, mode of 8 700 Lilly PO Box [facility] 700 1522, for screening for [facility] Jing, [facility] infec/parastc , [facility] Dr GIORDANO, [facility], Vicente 120, , for suprvsn of Lion Seymour, normal , [place], [place], tel: first [phone]. [id number] [facility]. tel: For Other Specified tel: [phone] Screening9 weeks gestation of [facility] Mild hyperemesis Chris-0 Blake Referring In Womens gravidarum8 weeks 8-201 Jeanette. Provider: Martha DAWSON, gestation of [address] [facility], 700 1522, [place] [address], [facility] [address] GIORDANO, 120, Vicente 120, , SeymourLion, GIULIANA GIORDANO, tel:[phone]. , [place]. tel: tel: [phone] Baldemar Seymour Chris-0 Blake In Womens 8-201 Jeanette. Martha DAWSON, 8 700 PO Box Medical 1522, [place] Dr Jing, [facility] GIULIANA, 120, [id number], [place] Seymour, tel:[phone] , [place]. tel: [phone] Baldemar Seymour Vomiting of Chris-0 Blake Referring In Womens , 2-201 Jeanette. Provider: Martha DAWSON, unspecifiedLess 8 700 Lilly PO Box than 8 weeks Medical Deonna, 700 1522, gestation of [place] [address], [facility] Dr GIORDANO, 120, Vic[place] 120, [id number], Lion Seymour, [place], [place], tel: [phone]. , [place]. tel: tel: [phone] Baldemar Seymour Irregular Menses Sep-2 Deonna Referring In Womens 0-201 Lilly. Provider: Martha DAWSON, 7 700 Lilly PO Box Medical Deonna, 700 1522, [place] [address], [facility] Dr GIORDANO, 120, Vicente 120, [id number], Lion Seymour, [place], [place], tel: [phone]. , . tel: tel: [phone] Family History Family Member Diagnosis Age At [...] name Insurance type Covered republican ID Authorization(s) [facility] [id number] Social History Type Description Quantity Date Captured [...] Status Appointment Marianne Leigh BOOKED Future Order: Lab Order Pap Smear With HPV Reflex If ASCUS Ordered ([id number]), Collected on: Date Type Problem Goal Intervention Status Start [...]
--- OUTSIDE RECORDS SUMMARY | 2018-06-20 04:05 | External Medical Summary | Continuity of Care Document ---
:1990 Author Organization [facility] Address [address] [place], [place] [id number] Phone Allergies, Adverse Reactions, Alerts Substance Reaction Severity Status PENICILLIN Break Out Unknown Active Medications Medication Instructions Dosage Effective Dates Status Comments (start - stop) SUDAFED (unknown take 1 tablet by - Active strength) ORAL route every 6 hours as needed Tums 200 mg chew 1 by Oral route Not Available - Active calcium (500 mg) as needed chewable tablet Plus take 1 tablet by Not Available - Active (calcium oral route every carbonate) 27 mg day iron-1 mg tablet Problems Condition Effective Dates (start - stop) Clinical Status Encounter for suprvsn of normal - , third trimester 35 weeks gestation of - Mild hyperemesis gravidarum [...] Procedures Procedure Date OB Visit No Charge - MACHINE ICER Results Test Name Date and Time Measure Units Reference Range Abnormal Flag Comments Unknown Advance Directives Directive Yes / No Effective Date File Name Unknown Encounters Encounter Practice Location Reason(s) Diagnoses Date Provider Care Team Description For Visit Members Baldemar Shah Blake Referring In Womens carrier state Jeanette. Provider: Health EUNICE, complicating 8 700 Lilly [facility], 700 1522, r for suprvsn of [facility], normal , , [place] [address] GIORDANO, third 120, Vicente 120, [id number], weeks gestation Lion Seymour, [place] of [place] GIORDANO, tel: [phone]. , [place]. tel: tel: [phone] Baldemar Seymour Encounter for Shreyas-2 Blake Referring In Womens suprvsn of normal 4-201 Jeanette. Provider: Martha DAWSON, , third 8 700 Lilly PO Box trimesterEncounte Medical Deonna, 700 1522, r For [facility], Screening For , [facility] Dr GIORDANO, Streptococcus B36 120, Vicente 120, , weeks gestation Lion Seymour, [place] of [place] GIORDANO, tel: [phone]. , [place]. tel: tel: [phone] Baldemar Seymour Encounter for Shreyas-1 Blake Referring In Womens suprvsn of normal 7-201 Jeanette. Provider: Health EUNICE, , third 8 700 Lilly PO Box weeks Medical Deonna, 700 1522, gestation of [facility], , [facility] Dr GIORDANO, 120, Vicente 120, , Lion Seymour, [place] GIULIANA GIORDANO, tel: [phone]. , [place]. tel: tel: [phone] Seymour Encounter for Shreyas-0 Blake Referring In Womens suprvsn of normal 9-201 Jeanette. Provider: Martha DAWSON, , third 8 700 Lilly PO Box [email or web address] weeks Medical Deonna, 700 1522, gestation of [facility], , [facility] Dr GIORDANO, 120, Vicente 120, , Lion Seymour, [place] GIULIANA GIORDANO, tel: [phone]. , [place]. tel: tel: [phone] Seymour Encounter for Judah-2 Blake Referring In Womens suprvsn of normal 5-201 Jeanette. Provider: Health EUNICE, , third 8 700 Lilly PO Box [id number] weeks Medical Deonna, 700 1522, gestation of [facility], , [facility] Dr GIORDANO, 120, Vic[place] 120, [id number], Lion Seymour, GIULIANA GIORDANO, tel: [phone]. , [place]. tel: tel: [phone] [facility] Maternal care for Judah-2 Blake Referring In Womens Ultrasound oth - Jeanette. Provider: Health PA, abnormality and 8 700 Lilly PO Box damage, unspEndo, Medical Deonna, 700 1522, nutritional and [facility], metab diseases , [facility] Dr GIORDANO, comp preg, third 120, Vicente 120, [id number], tri32 weeks Lion Seymour, gestation of GIULIANA, [place]NA, tel:+ [phone]. , [place]. tel: tel: [phone] [facility] Infection oth prt Judah-1 Harris Referring In Womens genitl trct in [facility] 700 Provider: Health EUNICE, , third 8 Medical Lilly PO Box [email or web address] weeks [place] Deonna, 700 1522, gestation of Dr, [facility] Jing, 120, Center Lion [place], Vicente 120, [id number], Lion GIORDANO, [id number] [place], tel: , [place]. [phone]. tel: tel: [phone] [facility] Maternal care for Judah-0 Blake Referring In Womens oth Jeanette. Provider: Health EUNICE, abnormality and 8 700 Lilly PO Box damage, unsp29 Medical Deonna, 700 1522, weeks gestation [facility] Jing, of , [facility] Dr GIORDANO, 120, Vicente 120, [id number], Lion Seymour, GIULIANA GIORDANO, tel: [phone]. , [place]. tel: tel: [phone] [facility] Endo, nutritional May-1 Blake Referring In Womens and metab - [place]. Provider: Health EUNICE, diseases comp 8 700 Lilly PO Box preg, second Medical Deonna, 700 1522, triEncounter for [facility], suprvsn of normal , [facility] Dr GIORDANO, , second 120, Vicente 120, [id number], [email or web address] weeks Lion Seymour, gestation of GIULIANA, GIUL[place]NA, tel: [phone]. , [place]. tel: tel: [phone] Baldemar Seymour Encounter for Apr-1 Blake Referring In Womens suprvsn of normal 6-201 Jeanette. Provider: Health EUNICE, , second 8 700 Lilly PO Box [id number] weeks Medical Deonna, 700 1522, [facility], , [facility] Dr GIORDANO, 120, Vicente 120, [id number], Lion Seymour, GIULIANA GIORDANO, tel: [phone]. , [place]. tel: tel: [phone] Seymour Encounter for Mar-1 Blake Referring In Womens suprvsn of normal 9-201 Jeanette. Provider: Martha DAWSON, , second 8 700 Lilly PO Box weeks Medical Deonna, 700 1522, gestation of [facility] [place], , [facility] Dr GIORDANO, 120, Vicente 120, [id number], Lion Seymour, GIULIANA GIORDANO, tel: [phone]. , [place]. tel: tel: [phone] Seymour Matern care for Mar-1 Blake Referring In Womens Ultrasound oth or susp poor 9-201 Jeanette. Provider: Health EUNICE, fetl grth, 2nd 8 700 Lilly PO Box tri, unsp18 weeks Medical Deonna, 700 1522, gestation of [facility] Jing, , [facility] Dr GIORDANO, 120, Vicente 120, [id number], Lion Seymour, [place] GIULIANA GIORDANO, tel:[phone]. , [place]. tel: tel: [phone] Seymour Matern care for Feb-1 Blake Referring In Womens oth or susp poor 2-201 Jeanette. Provider: Martha DAWSON, fetl grth, 1st 8 700 Lilly PO Box tri, unsp13 weeks Medical Deonna, 700 1522, gestation of [facility] Jing, , [facility] Dr GIORDANO, 120, Vicente 120, [id number], Lion Seymour, GIUL[place]NA GIORDANO, tel: [phone]. , [place]. tel: tel: [phone] Baldemar Seymour Mild hyperemesis Chris-1 Sobbing Referring In Womens gravidarumEncount 5-201 [place]. Provider: Martha DAWSON, er for suprvsn of 8 700 Lilly PO Box normal , Medical Deonna, 700 1522, first trimester [facility] Jing, [facility], [place] [address] GIORDANO, [address], [id number], Shai, Seymour, GIULIANA Seymour, tel: GIULIANA, [phone]. [phone], tel: [place]. [phone] tel: [phone] Baldemar Seymour Encntr screen for Chris-1 Blake Referring In Womens infections w sexl 5-201 Jeanette. Provider: Martha DAWSON, mode of 8 700 Lilly PO Box transmissEncounte Medical Deonna, 700 1522, r for screening [place], for oth , [facility] Dr GIORDANO, infec/parastc 120, Vicente 120, , diseasesEncounter Lion [place], for suprvsn of GIULIANA GIORDANO, tel: normal , [phone]. [facility] , . tel: trimesterEncounte tel: [phone] r For Other [id number] Specified Screening9 weeks gestation of [facility] Mild hyperemesis Chris-0 Blake Referring In Womens gravidarum8 weeks 8-201 Jeanette. Provider: Martha DAWSON, gestation of 8 700 Lilly PO Box Medical Deonna, 700 1522, [place] [address], [facility] Dr GIORDANO, 120, Vicente 120, [id number], Lion Seymour, GIUL[place]NA GIORDANO, tel:[phone]. , [place]. tel: tel: [phone] [facility] Vomiting of Nov- Blake Referring In Womens , 2-201 Jeanette. Provider: Martha DAWSON, unspecifiedLess 8 700 Lilly PO Box than 8 weeks Medical Deonna, 700 1522, gestation of [facility] Jing, , [facility] Dr GIORDANO, 120, Vicente 120, [id number], Lion Seymour, [place], [place], tel: [phone]. , . tel: tel: [phone] [facility] Irregular Menses Jul- Deonna Referring In Womens 0-201 Lilly. Provider: Martha DAWSON, 7 700 Lilly PO Box Medical Deonna, 700 1522, [place], , [facility] Dr GIORDANO, 120, Vicente 120, [id number], Lion Seymour, [place], [place], tel: [phone]. , . tel: tel: [phone] Family History Family Member Diagnosis Age At [...] Insurance type Covered constitution party ID Authorization(s) [facility] [id number] [facility] [id number] Social History Type Description Quantity Date Captured Alcohol Use Details No Caffeine Use Details Unknown Tobacco Use Status Unknown Smoking Status Never smoker Vital Signs Date / Height Weight BMI Pulse Blood Temperature Respiratory Body Head BMI Time: Rate Pressure Rate Surface Circumference percentile Area 213.30 37.7 137/83 -2018 lbs 8 mm[Hg] 11:08 kg/m AM eter (2) Chief Complaint And Reason For Visit Unknown Chief Complaint And Reason For Visit Reason For Referral Reason For Referral Unknown Plan Of Care Date Type Action Status Appointment Marianne Leigh BOOKED Future Order: Radiology Order Ultrasound OB Follow-up ([id number]) Ordered Future Order: Radiology Order Complete OB Ultrasound > 14 Weeks Ordered ([id number]) Date Type Problem Goal Intervention Status Start [...]
--- OUTSIDE RECORDS SUMMARY | 2018-06-20 04:05 | External Medical Summary | Continuity of Care Document ---
:1990 Author Organization [facility] Address [address] [place], [place] [id number] Phone Allergies, Adverse Reactions, Alerts Substance Reaction Severity Status PENICILLIN Break Out Unknown Active Medications Medication Instructions Dosage Effective Dates Status Comments (start - stop) Plus take 1 tablet by Not Available - Active (calcium oral route every carbonate) 27 mg day iron-1 mg tablet Monistat 3 4 % - No Longer (200 mg)-2 %(9 Active gram)vaginal pack,prefil appl and cream Problems Condition Effective Dates (start - stop) Clinical Status Encounter for suprvsn of normal - , third trimester 32 weeks gestation of - Mild hyperemesis [...] third trimester 34 weeks gestation of - Procedures Procedure Date Immuniz admnin, 1 vac, sngl/combo 19 Yrs + TDAP VACCINE >7 IM OB Visit No Charge Results Test Name [...] , third 8 [address] [email or web address] weeks Medical Deonna, 700 1522, [facility], , [facility] Dr GIORDANO, 120, Vicente 120, [id number], Lion Seymour, GIULIANA GIORDANO, tel:[phone]. [phone] , [place]. tel: tel: [phone] Baldemar Seymour Encounter for Blake Referring In Womens suprvsn of normal 5-201 Jeanette. Provider: Marhta DAWSON, , third 8 [address] [email or web address] weeks Medical Deonna, 700 1522, gestation of [facility], , [facility] Dr GIORDANO, 120, Vicente 120, [id number], Lion Seymour, [place], [place], tel: [phone]. , [place]. tel: tel: [phone] Baldemar Seymour Maternal care for Judah-2 Blake Referring In Womens Ultrasound oth 5- Jenaette. Provider: Health EUNICE, abnormality and 8 [address] damage, unspEndo, Medical Deonna, 700 1522, nutritional and [facility], metab diseases , [facility] Dr GIORDANO, comp preg, third 120, Vicente 120, [id number], tri32 weeks Lion Seymour, gestation of [place], GI[place]IANA, tel: [phone]. , [place]. tel: tel: [phone] [facility] Infection oth prt Judah-1 Harris Referring In Womens genitl trct in [facility] 700 Provider: Martha DAWSON, , third 8 Medical Lilly PO Box [id number] weeks [place] Deonna, 700 1522, gestation of Dr [facility], 120, Center Dr GIORDANO, Lion, Vicente 120, [id number], Lion GIORDANO, [id number] [place], tel: , [place]. [phone]. tel: tel: [phone] Baldemar Seymour Maternal care for Judah-0 Blake Referring In Womens oth - Jeanette. Provider: Martha DAWSON, abnormality and 8 [address] damage, unsp29 Medical Deonna, 700 1522, weeks gestation [facility], of , [facility] Dr GIORDANO, 120, Vicente 120, [id number], Lion Seymour, GIULIANA GIORDANO, tel:[phone]. , [place]. tel: tel: [phone] [facility] Endo, nutritional May-1 Blake Referring In Womens and metab Violet. Provider: Health EUNICE, diseases comp 8 700 Lilly [address] Box preg, second Medical Deonna, 700 1522, [facility], suprvsn of normal , [facility] Center Dr GIORDANO, , second 120, Vicente 120, [id number], [id number] weeks Lion Seymour, gestation of GI[place]NA, GIULIANA, tel:+ [phone]. , [place]. tel: tel: [phone] Baldemar Seymour Encounter for Apr-1 Blake Referring In Womens suprvsn of normal 6-201 Jeanette. Provider: Health EUNICE, , second 8 [address] [id number] weeks Medical Deonna, 700 1522, [facility], , [facility] Dr GIORDANO, 120, Vicente 120, [id number], Lion Seymour, GIULIANA GIORDANO, tel: [phone]. , [place]. tel: tel: [phone] Seymour Encounter for Mar-1 Blake Referring In Womens suprvsn of normal 9-201 Jeanette. Provider: Martha DAWSON, , second 8 700 [address] [id number] weeks Medical Deonna, 700 1522, gestation of [facility] [place], , [facility] Dr GIORDANO, 120, Vicente 120, [id number], Lion Seymour, GIULIANA GIORDANO, tel: [phone]. , [place]. tel: tel: [phone] Baldemar Seymour Matern care for Mar-1 Blake Referring In Womens Ultrasound oth or susp poor 9-201 Jeanette. Provider: Health EUNICE, fetl grth, 2nd 8 700 Lilly PO Box tri, unsp18 weeks Medical Deonna, 700 1522, gestation of [facility], , [facility] Dr GIORDANO, 120, Vicente 120, [id number], Lion Seymour, GIULIANA GIORDANO, tel: [phone]. , [place]. tel: tel: [phone] Seymour Matern care for Feb-1 Blake Referring In Womens oth or susp poor 2-201 Jeanette. Provider: Martha DAWSON, fetl grth, 1st 8 700 [address] PO Box tri, unsp13 weeks Medical Deonna, 700 1522, gestation of [facility], , [facility] Dr GIORDANO, 120, Vicente 120, [id number], Lion Seymour, GIULIANA GIORDANO, tel:[phone]. , [place]. tel: tel: [phone] Baldemar Seymour Mild hyperemesis Chris-1 Sobbing Referring In Womens gravidarumEncount 5-201 Chilango. Provider: Martha DAWSON, er for suprvsn of 8 700 Lilly PO Box normal , Medical Deonna, 700 1522, first trimester [facility], [facility], [address] GIORDANO, [address], , Shai, Seymour, GIULIANA Seymour, tel: GIULIANA, [phone]. [id number], tel: [place]. [phone] tel: [phone] Baldemar Seymour Encntr screen for Chris-1 Blake Referring In Womens infections w sexl 5-201 Jeanette. Provider: Martha DAWSON, mode of 8 700 [address] Box transmissEncounte Medical Deonna, 700 1522, r for screening [facility], for oth , [facility] Dr GIORDANO, infec/parastc 120, Vicente 120, , diseasesEncounter Lion Irvona, for suprvsn of GIULIANA GIORDANO, tel: normal , [phone]. [facility] , . tel: trimesterEncounte tel: [phone] r For Other [id number] Specified Screening9 weeks gestation of [facility] Mild hyperemesis Chris-0 Blake Referring In Womens gravidarum8 weeks 8-201 Jeanette. Provider: Martha DAWSON, gestation of 8 700 [address] Box Medical Deonna, 700 1522, [place] [address], [facility] Dr GIORDANO, 120, Vicente 120, , Lion Seymour, GIULIANA GIORDANO, tel:[phone]. , . tel: tel: [phone] [facility] Vomiting of Chris-0 Blake Referring In Womens , 2-201 Jeanette. Provider: Martha DAWSON, unspecifiedLess 8 700 [address] Box than 8 weeks Medical Deonna, 700 1522, gestation of [facility], , [facility] Dr GIORDANO, 120, Vicente 120, [id number], Lion Seymour, [place], [place], tel: [phone]. , . tel: tel: [phone] [facility] Irregular Menses Sep-2 Deonna Referring In Womens 0-201 Lilly. Provider: Martha DAWSON, 7 700 Lilly PO Box Medical Deonna, 700 1522, [facility] [place], , [address] GIORDANO, 120, Vicente 120, [id number], Lion Seymour, [facility], [place], tel: [phone]. , . tel: tel: [phone] Family History Family Member Diagnosis Age At [...] type Covered republican ID Authorization(s) [facility] [id number] [facility] [id number] Social History Type Description Quantity Date Captured Alcohol Use Details No Caffeine Use Details Unknown Tobacco Use Status Unknown Smoking Status Never smoker Vital Signs Date / Height Weight BMI Pulse Blood Temperature Respiratory Body Head BMI Time: Rate Pressure Rate Surface Circumference percentile Area 208.00 36.8 124/80 2018 lbs 4 mm[Hg] 3:00 kg/m PM eter (2) Chief Complaint And Reason For Visit Unknown Chief Complaint And Reason For Visit Reason For Referral Reason For Referral Unknown Plan Of Care Date Type Action Status Appointment Marianne Leigh BOOKED Future Order: Radiology Order Ultrasound OB Follow-up ([id number]) Ordered Future Order: Radiology Order Complete OB Ultrasound > 14 Weeks Ordered ([id number]) Date Type Problem Goal Intervention Status Start [...]
--- OUTSIDE RECORDS SUMMARY | 2018-06-20 04:05 | External Medical Summary | Continuity of Care Document ---
:1990 Author Organization [facility] Address [address] [place], [place] [id number] Phone Allergies, Adverse Reactions, Alerts Substance Reaction Severity Status PENICILLIN Break Out Unknown Active Medications Medication Instructions Dosage Effective Dates Status Comments (start - stop) Plus take 1 tablet by Not Available - Active (calcium oral route every carbonate) 27 mg day iron-1 mg tablet Problems Condition Effective Dates (start - stop) Clinical Status Endo, nutritional and metab diseases - comp preg, second tri Encounter for suprvsn of normal - , second trimester 26 weeks gestation of - Mild hyperemesis gravidarum [...] Procedures Procedure Date OB Visit No Charge Automated hemogram (CBC) Glucose test Venpnctr fngr/heel/ear stick routne Assay thyroid stimulating hormone Results Test Name Date and Time Measure Units Reference Range Abnormal Flag Comments Panel Description: CBC With Differential/Platelet WBC 17:00:00 10.4 x10E3/uL 3.4-10.8 RBC 17:00:00 3.78 x10E6/uL 3.77-5.28 Hemoglobin 17:00:00 11.3 g/dL 11.1-15.9 Hematocrit 17:00:00 33.2 % 34.0-46.6 L MCV 17:00:00 88 fL 79-97 MCH 17:00:00 29.9 pg 26.6-33.0 MCHC 17:00:00 34.0 g/dL 31.5-35.7 RDW 17:00:00 13.1 % 12.3-15.4 Platelets 17:00:00 308 x10E3/uL 150-379 Neutrophils 17:00:00 75 % Not Estab. Lymphs 17:00:00 19 % Not Estab. Monocytes 17:00:00 5 % Not Estab. Eos 17:00:00 1 % Not Estab. Basos 17:00:00 0 % Not Estab. Immature Cells 17:00:00 Neutrophils (Absolute) 17:00:00 7.8 x10E3/uL 1.4-7.0 H Lymphs (Absolute) 17:00:00 1.9 x10E3/uL 0.7-3.1 Monocytes(Absolute) 17:00:00 0.6 x10E3/uL 0.1-0.9 Eos (Absolute) 17:00:00 0.1 x10E3/uL 0.0-0.4 Baso (Absolute) 17:00:00 0.0 x10E3/uL 0.0-0.2 Immature Granulocytes 17:00:00 0 % Not Estab. Immature Grans (Abs) 17:00:00 0.0 x10E3/uL 0.0-0.1 NRBC 17:00:00 Hematology Comments: 17:00:00 Panel Description: Glucose [Mass/volume] in Serum or Plasma --1 hour post 50 g glucose PO Gestational Diabetes Screen 17:00:00 98 mg/dL 65-135 Panel Description: Thyrotropin [Units/volume] in Serum or Plasma by Detection limit <=0.05 mIU/L TSH 16:35:00 0.772 uIU/mL 0.450-4.500 Reference Interval : First Trimester 0.100 - 2.500 Second Trimester 0.200 - 3.000 Third Trimester 0.300 - 3.000 . Non- Adult 0.450 - 4.500 Advance Directives Directive Yes / No Effective Date File Name Unknown Encounters Encounter Practice Location Reason(s) Diagnoses Date Provider Care Team Description For Visit Members Baldemar Costa, nutritional Blake Referring In Womens and metab 4-201 Jeanette. Provider: Health EUNICE, diseases comp 8 700 Lilly PO Box preg, second Medical Deonna, 700 1522, triEncounter for [facility], suprvsn of normal Dr [facility] Dr GIORDANO, , second 120, Vicente 120, [id number], [email or web address] weeks Lion Seymour, gestation of GIULIANA GIORDANO, tel: [phone]. [phone] , [place]. tel: tel: [phone] Baldemar Seymour Encounter for Blake Referring In Womens suprvsn of normal 6-201 Jeanette. Provider: Health EUNICE, , second 8 700 [address] [email or web address] weeks Medical Deonna, 700 1522, gestation of [place], Dr [place] [address] GIORDANO, 120, Vicente 120, [id number], Lion Seymour, GIULIANA, GIULIANA, tel: [phone]. , [place]. tel: tel: [phone] Baldemar Seymour Encounter for Mar-1 Blake Referring In Womens suprvsn of normal 9-201 Jeanette. Provider: Martha DAWSON, , second 8 700 Lilly PO Box [email or web address] weeks Medical Deonna, 700 1522, gestation of [facility], , [facility] Dr GIORDANO, 120, Vicente 120, [id number], Lion Seymour, GIULIANA, GIULIANA, tel:[phone]. , [place]. tel: tel: [phone] Baldemar Seymour Matern care for Mar-1 Blake Referring In Womens Ultrasound oth or susp poor 9-201 Jeanette. Provider: Martha DAWSON, fetl grth, 2nd 8 700 [address] PO Box tri, unsp18 weeks Medical Deonna, 700 1522, gestation of [facility], , [facility] Dr GIORDANO, 120, Vicente 120, [id number], Lion Seymour, GIULIANA GIORDANO, tel: [phone]. , [place]. tel: tel: [phone] Baldemar Seymour Matern care for Feb-1 Blake Referring In Womens oth or susp poor 2-201 Jeanette. Provider: Martha DAWSON, fetl grth, 1st 8 700 Lilly PO Box tri, unsp13 weeks Medical Deonna, 700 1522, gestation of [facility], , [facility] Dr GIORDANO, 120, Vicente 120, [id number], Lion Seymour, GIULIANA, GIULIANA, tel: [phone]. , [place]. tel: tel: [phone] Baldemar Seymour Mild hyperemesis Nov- Sobbing Referring In Womens gravidarumEncount 5-201 Chilango. Provider: Martha DAWSON, er for suprvsn of 8 700 Lilly PO Box normal , Medical Deonna, 700 1522, first trimester [facility] Dr GIORDANO, [address], [id number], Shai, Seymour, [place], tel: [place], [phone]. [id number], tel: [place]. [phone] tel: [phone] Baldemar Seymour Encntr screen for Chris-1 Blake Referring In Womens infections w sexl 5-201 Jeanette. Provider: Martha DAWSON, mode of 8 700 Lilly PO Box transmissEncounte Medical Deonna, 700 1522, r for screening [facility] [place], for oth , [facility] Dr GIORDANO, infec/parastc 120, Vicente 120, , diseasesEncounter Lion Seymour, for suprvsn of GIULIANA GIORDANO, tel: normal , [phone]. [facility] , [place]. tel: trimesterEncounte tel: [phone] r For Other [id number] Specified Screening9 weeks gestation of [facility] Mild hyperemesis Chris-0 Blake Referring In Womens gravidarum8 weeks 8-201 Jeanetet. Provider: Martha DAWSON, gestation of 8 700 Lilly PO Box Medical Deonna, 700 1522, [place] [address], [facility] Dr GIORDANO, 120, Vicente 120, [id number], Lion Seymour, [place], tel: [phone]. , [place]. tel: tel: [phone] Baldemar Seymour Vomiting of Chris-0 Blake Referring In Womens , 2-201 Jeanette. Provider: Martha DAWSON, unspecifiedLess 8 700 Lilly PO Box than 8 weeks Medical Deonna, 700 1522, gestation of [place] [facility] , [facility] Dr GIORDANO, 120, Vicente 120, [id number], Lion Seymour, [place], tel: [phone]. , [place]. tel: tel: [phone] Baldemar Seymour Irregular Menses Sep-2 Deonna Referring In Womens 0-201 Lilly. Provider: Health EUNICE, 7 700 Lilly PO Box Medical Deonna, 700 1522, [facility], [facility] Dr GIULIANA, 120, Vicente 120, [id number], Lion Seymour, GIULIANA GIORDANO, tel:[phone] , [place]. tel: tel: [phone] Family History Family Member Diagnosis Age At [...] Provider Payers Payer name Insurance type Covered libertarian ID Authorization(s) [facility] GIULIANA [id number] Social History Type Description Quantity Date Captured Alcohol Use Details No Caffeine Use Details Unknown Tobacco Use Status Unknown Smoking Status Never smoker Vital Signs Date / Height Weight BMI Pulse Blood Temperature Respiratory Body Head BMI Time: Rate Pressure Rate Surface Circumference percentile Area 197.80 35.0 113/70 2018 lbs 3 mm[Hg] 4:24 kg/m PM eter (2) Chief Complaint And Reason For Visit Unknown Chief Complaint And Reason For Visit Reason For Referral Reason For Referral Unknown Plan Of Care Date Type Action Status Appointment Marianne Leigh BOOKED Future Order: Radiology Order Complete OB Ultrasound > 14 Weeks Ordered ([id number]) Date Type Problem Goal Intervention Status Start [...]
--- OUTSIDE RECORDS SUMMARY | 2018-06-20 04:06 | External Medical Summary | Continuity of Care Document ---
:1990 Author Organization [facility] [facility] Address [address] [place], [place] [phone] Phone Allergies, Adverse Reactions, Alerts Substance Reaction [...] damage, unsp 29 weeks gestation of - Mild hyperemesis gravidarum [...] Team Description For Visit Members Baldemar Seymour Apr- Blake Referring In Womens Jeanette. Provider: Martha DAWSON, 8 700 Lilly PO Box Medical Deonna, 700 1522, [place] [address], [facility] Dr GIORDANO, 120, Vicente 120, [id number], Lion Seymour, [facility], [place], tel:[phone]. , [place]. tel: tel: [phone] Baldemar Seymour Maternal care for Apr-2 Blake Referring In Women Ultrasound oth Jeanette. Provider: Martha DAWSON, abnormality and 8 700 Lilly PO Box damage, unspEndo, Medical Deonna, 700 1522, nutritional and [facility]ing, metab diseases , [facility] Dr GIORDANO, comp preg, third 120, Vicente 120, [id number], tri32 weeks Lion Seymour, gestation of [place], [place], tel:[phone]. , [place]. tel: tel: [phone] Baldemar Seymour Infection oth prt Apr- Harris Referring In Women genitl trct in [place]. 700 Provider: Health PA, , third 8 Medical Lilly PO Box [email or web address] weeks [place] Deonna, 700 1522, gestation of Dr [facility] Jing, 120, [address] Dr GIORDANO, Lion, Vicente 120, [id number], Lion GIORDANO, [id number] GI[place]NA, tel: , [place]. [phone]. tel: tel: [phone] Baldemar Seymour Maternal care for Judah-0 Blake Referring In Womens oth 4-201 Jeanette. Provider: Health EUNICE, abnormality and 8 700 Lilly PO Box damage, unsp29 Medical Deonna, 700 1522, weeks gestation [facility] Jing, of Dr, [facility] Dr GIORDANO, 120, Vicente 120, [id number], Lion Seymour, GIULIANA GIORDANO, tel: [phone]. , [place]. tel: tel: [phone] Seymour Endo, nutritional May-1 Blake Referring In Womens and metab 4-201 Jeanette. Provider: Health EUNICE, diseases comp 8 700 Lilly PO Box preg, second Medical Deonna, 700 1522, [facility], suprvsn of normal , [facility] Dr GIORDANO, , second 120, Vicente 120, [id number], [id number] weeks Lion Seymour, gestation of GIULIANA GIORDANO, tel:+ [phone]. , [place]. tel: tel: [phone] Seymour Encounter for Apr-1 Blake Referring In Womens suprvsn of normal 6-201 Jeanette. Provider: Health EUNICE, , second 8 700 Lilly PO Box weeks Medical Deonna, 700 1522, gestation of [place], , [facility] Dr GIORDANO, 120, Vicente 120, [id number], Lion Seymour, [place] GIULIANA GIORDANO, tel: [phone]. , [place]. tel: tel: [phone] Seymour Encounter for Mar-1 Blake Referring In Womens suprvsn of normal 9-201 Jeanette. Provider: Martha DAWSON, , second 8 700 Lilly PO Box [email or web address] weeks Medical Deonna, 700 1522, gestation of [facility], , [facility] Dr GIORDANO, 120, Vicente 120, [id number], Lion Seymour, GIULIANA, GIULIANA, tel: [phone]. , [place]. tel: tel: [phone] Baldemar Seymour Matern care for Blake Referring In Womens Ultrasound oth or susp poor 9- Jeanette. Provider: aMrtha DAWSON, fetl grth, 2nd 8 700 Lilly PO Box tri, unsp18 weeks Medical Deonna, 700 1522, gestation of [facility], , [facility] Dr GIORDANO, 120, Vicente 120, , Lion Seymour, GIULIANA GIORDANO, tel:[phone]. , [place]. tel: tel: [phone] Baldemar Seymour Matern care for Dec- Blake Referring In Womens oth or susp poor 2- Jeanette. Provider: Martha DAWSON, fetl grth, 1st 8 700 Lilly PO Box tri, unsp13 weeks Medical Deonna, 700 1522, gestation of [facility], , [facility] Dr GIORDANO, 120, Vicente 120, [id number], Lion Seymour, GIULIANA GIORDANO, tel: [phone]. , [place]. tel: tel: [phone] Baldemar Seymour Mild hyperemesis Sobbing Referring In Womens gravidarumEncount 5-201 Chilango. Provider: Martha DAWSON, er for suprvsn of 8 700 Lilly PO Box normal , Medical Deonna, 700 1522, first trimester [facility], Drive, [place] [address] GIORDANO, [address], , 120, Seymour, GIULIANA Seymour, tel: GIULIANA, [phone]. [id number], tel: [place]. [phone] tel: [phone] Baldemar Seymour Encntr screen for Nov- Blake Referring In Womens infections w sexl 5-201 Jeanette. Provider: Martha DAWSON, mode of 8 700 Lilly PO Box transmissEncounte Medical Deonna, 700 1522, r for screening [facility] Jing, for oth , [facility] Dr GIORDANO, infec/parastc 120, Vicente 120, [id number], diseasesEncounter Lion [place], for suprvsn of [place], [place], tel: normal , [phone]. [facility] , [place]. tel: trimesterEncounte tel: [phone] r For Other [id number] Specified Screening9 weeks gestation of [facility] Mild hyperemesis Chris-0 Blake Referring In Womens gravidarum8 weeks 8-201 Jeanette. Provider: Martha DAWSON, gestation of 8 700 Lilly PO Box Medical Deonna, 700 1522, [place] [address], [facility] Dr GIORDANO, 120, Vicente 120, [id number], Lion Seymour, [place], [place], tel: [phone]. , [place]. tel: tel: [phone] Baldemar Seymour Vomiting of Chris-0 Blake Referring In Womens , 2-201 Jeanette. Provider: Martha DAWSON, unspecifiedLess 8 700 Lilly PO Box than 8 weeks Medical Deonna, 700 1522, gestation of [facility] Jing, , [facility] Dr GIORDANO, 120, Vicente 120, [id number], Lion Seymour, [place], [place], tel: [phone]. , [place]. tel: tel: [phone] Baldemar Seymour Irregular Menses Sep-2 Deonna Referring In Womens 0-201 Lilly. Provider: Martha DAWSON, 7 700 Lilly PO Box Medical Deonna, 700 1522, [place] [address], [facility] Dr GIORDANO, 120, Vicente 120, [id number], Lion Seymour, [facility], [place], tel: [phone]. [id number] , . tel: tel: [phone] Family History Family Member Diagnosis Age At [...] name Insurance type Covered libertarian ID Authorization(s) [facility] [id number] [facility] [id number] Social History Type Description Quantity Date Captured Alcohol Use Details No Caffeine Use Details Unknown Tobacco Use Status Unknown Smoking Status Never smoker Vital Signs Date / Height Weight BMI Pulse Blood Temperature Respiratory Body Head BMI Time: Rate Pressure Rate Surface Circumference percentile Area 201.20 35.6 / lbs 4 mm[Hg] 4:28 kg/m PM eter (2) Chief Complaint And Reason For Visit Unknown Chief Complaint And Reason For Visit Reason For Referral Reason For Referral Unknown Plan Of Care Date Type Action Status Appointment Marianne Leigh BOOKED Future Order: Radiology Order Ultrasound OB Follow-up ([id number]) Ordered Future Order: Radiology Order Complete OB Ultrasound > 14 Weeks Ordered ([id number]) Date Type Problem Goal Intervention Status Start [...]
--- OUTSIDE RECORDS SUMMARY | 2018-06-20 04:06 | External Medical Summary | Continuity of Care Document ---
:1990 Author Organization [facility] Address [address] [place], [place] [id number] Phone Allergies, Adverse Reactions, Alerts Substance Reaction Severity Status PENICILLIN Break Out Unknown Active Medications Medication Instructions Dosage Effective Dates Status Comments (start - stop) metoclopramide 10 mg take 1 (10MG) by - Active tablet oral route every 8 hours promethazine 25 mg take 1 tablet by 25 MG - Active tablet oral route every day at bedtime Diclegis 10 mg-10 mg take 1 tablet by - Active tablet,delayed oral route every release day in the morning, 1 tablet in the mid-afternoon, and 2 tablets at bedtime Plus take 1 tablet by [...] weeks gestation of - Procedures Procedure Date Urinalysis, non-automated, w/o scope OB Visit No Charge - SOCIAL MEDIA MARKETING ANALYST Results Test Name Date and Time Measure Units Reference Range Abnormal Flag Comments Unknown Advance Directives Directive Yes / No Effective Date File Name Unknown Encounters Encounter Practice Location Reason(s) Diagnoses Date Provider Care Team Description For Visit Members [facility] Mild hyperemesis Nov-1 Sobbing Referring In Womens gravidarumEncounter 5-201 [place]. Provider: Martha DAWSON, for suprvsn of 8 [address] normal , Medical Deonna, 700 1522, first trimester [place] [facility] [address] GIORDANO, [address], , [place], [place], [place], tel: [place], [phone], tel: [place]. [phone] tel: [phone] [facility] Encntr screen for Nov- Blake Referring In Womens infections w sexl 5-201 Jeanette. Provider: Martha DAWSON, mode of 8 [address] transmissEncounter Medical Deonna, 700 1522, for screening for [facility] Jing, [facility] infec/parastc , [facility] Dr GIORDANO, diseasesEncounter 120, [address], , for suprvsn of Lion [facility] normal , GI[place]NA, [place], tel: first [phone]. [facility]. tel: For Other Specified tel: [phone] Screening9 weeks gestation of [facility] Mild hyperemesis Chris-0 Blake Referring In Womens gravidarum8 weeks 8-201 Jeanette. Provider: Martha DAWSON, gestation of 8 [address] Medical [place], [address] 15[address], [place] [address], [facility] Dr GIORDANO, 120, [address], , [place], GIULIANA GIORDANO, tel:[phone]. , [place]. tel: tel: [phone] [facility] Chris-0 Blake In Womens 8-201 Jeanette. Martha DAWSON, 8 700 [address], [place] [address] Jing, [facility] [place], 120, [id number], [place], tel:[phone] , [place]. tel: [phone] Baldemar [place] Vomiting of Nov- Blake Referring In Womens , 2-201 Jeanette. Provider: Martha DAWSON, unspecifiedLess 8 [address] than 8 weeks Medical Deonna, 700 1522, gestation of [facility] Jing, , [facility] Dr GIORDANO, 120, [address], [id number], [place], [facility], [place], tel: [phone]. , . tel: tel: [phone] Baldemar [place] Irregular Menses Sep- Deonna Referring In Womens 0-201 Lilly. Provider: Martha DAWSON, 7 700 [address] Medical [place], 700 1522, [place] [facility], , [facility] Dr GIORDANO, 120, [address], [id number], [place], [facility], [place], tel: [phone]. , . tel: tel: [phone] Family History Family Member Diagnosis Age At [...] name Insurance type Covered democrat ID Authorization(s) [place]IM[place] BL [id number] Social History Type Description Quantity Date Captured Alcohol Use Details Caffeine Use Details coffee 2 cups per day Tobacco Use Status Never smoked tobacco Smoking Status Never smoker Non-Smoking Tobacco Use : No Details Available : No Details Available Details Vital Signs Date / Height Weight BMI Pulse Blood Temperature Respiratory Body Head BMI Time: Rate Pressure Rate Surface Circumference percentile Area 174.00 112/74 -2018 lbs mm[Hg] 1:45 PM 174.00 30.7 112/74 2018 lbs 9 mm[Hg] 4:03 kg/m PM eter (2) Chief Complaint And [...]
--- OUTSIDE RECORDS SUMMARY | 2018-06-20 04:06 | External Medical Summary | Continuity of Care Document ---
:1989 Author Organization [facility] Address [address] [place], [place] [address] Phone Allergies, Adverse Reactions, Alerts Substance Reaction [...] Effective Dates (start - stop) Clinical Status Mild hyperemesis gravidarum - 8 weeks gestation of - Vomiting of , unspecified Less than 8 weeks gestation of - Irregular Menses [...] For Visit Members [facility] Mild hyperemesis Chris-1 Sobbing Referring In Womens gravidarumEncounter 5-201 [place]. Provider: Martha DAWSON, for suprvsn of 8 [address] normal , Medical Deonna, 700 1522, [facility], [address], [id number], [place], [place], [place]NA [place], tel:+ GIULIANA, [phone]. [id number], tel:+ US. [phone] tel: [phone] [facility] Encntr screen for Nov-1 Blake Referring In Womens infections w sexl 5-201 Jeanette. Provider: Martha DAWSON, mode of 8 [address] transmissEncounter Medical Deonna, 700 1522, for screening for [facility] Jing, ot infec/parastc , [facility] Dr GIORDANO, diseasesEncounter 120, [address], , for suprvsn of [place], normal , [place]NA, GI[place]NA, tel: first [phone]. [facility]. tel: For Other Specified tel: [phone] Screening9 weeks gestation of [facility] Mild hyperemesis Chris-0 Blake Referring In Womens gravidarum8 weeks 8-201 Jeanette. Provider: Martha DAWSON, gestation of 8 [address] Medical [place], [address] 15[address], [place] [address], [facility] Dr GIORDANO, 120, [address], [id number], [place], GI[place]IANA GIORDANO, tel: [phone]. , [place]. tel: tel: [phone] [facility] Chris-0 Blake In Womens 8-201 Jeanette. Martha DAWSON, 8 700 [address], [place] [address] Jing, [facility] [place], 120, [id number], [place], tel:[phone] , [place]. tel: [phone] [facility] Vomiting of Chris-0 Blake Referring In Womens , 2-201 Jeanette. Provider: Health EUNICE, unspecifiedLess 8 [address] than 8 weeks Medical Deonna, 700 1522, gestation of [place] [facility] , [facility] Dr GIORDANO, 120, [address], [id number], [place], [facility], [place], tel: [phone]. , . tel: tel: [phone] Baldemar [place] Irregular Menses Sep- Deonna Referring In Womens 0-201 Lilly. Provider: Martha DAWSON, 7 700 [address] Medical [place]onna, [address], [place] [address], [facility] Dr GIORDANO, 120, [address], [id number], [place], [facility], [place], tel: [phone]. , . tel: tel: [phone] Family History Family Member Diagnosis Age At [...] name Insurance type Covered republican ID Authorization(s) JIMBO CAMPOS [id number] Social History Type Description Quantity Date Captured Alcohol Use Details Caffeine Use Details Unknown Tobacco Use Status Unknown Smoking Status Never smoker Vital Signs Date / Height Weight BMI Pulse Blood Temperature Respiratory Body Head BMI Time: Rate Pressure Rate Surface Circumference percentile Area 169.50 30.7 119/75 -2018 lbs 9 mm[Hg] 4:21 kg/m PM eter (2) 169.50 30.7 119/74 -2018 lbs 9 mm[Hg] 4:21 kg/m PM eter (2) Chief Complaint And [...]
--- OUTSIDE RECORDS SUMMARY | 2018-06-20 04:06 | External Medical Summary | Continuity of Care Document ---
:1990 Author Organization [facility] Address [address] [place], [place] [address] Phone Allergies, Adverse Reactions, Alerts Substance Reaction [...] Effective Dates (start - stop) Clinical Status Encntr screen for infections w sexl - mode of transmiss Encounter for screening for oth - infec/parastc diseases Encounter for suprvsn of normal - , first trimester Encounter For Other Specified - Screening 9 weeks gestation of - Vomiting of , unspecified Less than 8 weeks gestation of - Mild hyperemesis gravidarum - 8 weeks gestation of - Irregular Menses Mild hyperemesis gravidarum - Encounter for suprvsn of normal - , first trimester Procedures Procedure Date 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 OB Panel With An HIV Venpnctr fngr/heel/ear stick routne Infct antign, chlamydia trac, ampl Neisseria Gonorrhoeae, Amplification Cult, bactr, wagner colonycnt, urine Results Test Name Date and Time Measure Units Reference Range Abnormal Flag Comments Panel Description: OBSTETRIC PANEL WHITE BLOOD CELL 6.4 Thousand/uL 3.8-10.8 N COUNT 11:14:00 RED BLOOD CELL 4.31 Million/uL 3.80-5.10 N COUNT 11:14:00 HEMOGLOBIN 12.5 g/dL 11.7-15.5 N 11:14:00 HEMATOCRIT 36.7 % 35.0-45.0 N 11:14:00 MCV 85.2 fL 80.0-100.0 N 11:14:00 MCH 29.0 pg 27.0-33.0 N 11:14:00 MCHC 34.1 g/dL 32.0-36.0 N 11:14:00 RDW 11.8 % 11.0-15.0 N 11:14:00 PLATELET COUNT 300 Thousand/uL 140-400 N 11:14:00 MPV 10.4 fL 7.5-12.5 N 11:14:00 ABSOLUTE 4186 cells/uL 9615-4267 N NEUTROPHILS 11:14:00 ABSOLUTE 1766 cells/uL 850-3900 N LYMPHOCYTES 11:14:00 ABSOLUTE 320 cells/uL 200-950 N MONOCYTES 11:14:00 ABSOLUTE 70 cells/uL 15-500 N EOSINOPHILS 11:14:00 ABSOLUTE 58 cells/uL 0-200 N BASOPHILS 11:14:00 NEUTROPHILS 65.4 % N 11:14:00 LYMPHOCYTES 27.6 % N 11:14:00 MONOCYTES 5.0 % N 11:14:00 EOSINOPHILS 1.1 % N 11:14:00 BASOPHILS 0.9 % N 11:14:00 ANTIBODY SCREEN, NO ANTIBODIES N RBC W/REFL ID, 11:14:00 DETECTED Reference range TITER AND AG No antibodies detected This assay is a screening test for the detection of red blood cell antibodies. The test is not to be used for pretransfusion screening or for the medical management of an alloimmunized . ABO GROUP A 11:14:00 RH TYPE RH(D) 11:14:00 POSITIVE RPR (DX) W/REFL NON-REACTIVE NON-REACTIV N TITER AND 11:14:00 E CONFIRMATORY TESTING HEPATITIS B NON-REACTIVE NON-REACTIV N SURFACE ANTIGEN 11:14:00 E RUBELLA ANTIBODY 2.79 index N Index (IGG) 11:14:00 Interpretation ----- <0.90 Not consistent with Immunity 0.90-0.99 Equivocal > or=1.00 Consistent with Immunity The presence of rubella IgG antibody suggests immunization or past or current infection withrubella virus.Test performed at [facility] [place] [address]Wayflab r: NAY SANDOVAL DO,MPH Panel Description: HIV 1/2 ANTIGEN/ANTIBODY,FOURTH GENERATION W/RFL HIV NON-REACTIVE NON-REACTIVE N HIV-1 antigen and HIV-1/HIV- 2 antibodies were AG/AB, 11:14:00 notdetected. There is no laboratory evidence of 4TH GEN HIVinfection. PLEASE NOTE: This information has been disclosed toyou from records whose confidentiality may beprotected by state law. If your state requires suchprotection, then the state law prohibits you frommaking any further disclosure of the informationwithout the specific written consent of the personto whom it pertains, or as otherwise permitted by law.A general authorization for the release of medical orother information is NOT sufficient for this purpose. For additional information please refer tohttp://education.[employer]/faq/AIA151(This link is being provided for informational/educational purposes only.) The performance of this assay has not been clinicallyvalidated in patients less than 2 years old. REPORT COMMENT:FASTING:NOTest performed [place] [address]Bppbfctz: NAY SANDOVAL DO,MPH Panel Description: Bacteria identified in Urine by Culture CULTURE, URINE, SEE NOTE CULTURE, URINE, ROUTINE MICRO ROUTINE 11:23:00 NUMBER: [id number] TEST STATUS: FINAL SPECIMEN SOURCE: URINE SPECIMEN QUALITY: ADEQUATE RESULT: No GrowthREPORT COMMENT:RFASTING:UNKNOWNTest performed at [facility] [address] [address]Owikazfz: NAY SANDOVAL DO,MPH Panel Description: CHLAMYDIA/N. GONORRHOEAE RNA, TMA CHLAMYDIA NOT DETECTED NOT DETECTED N TRACHOMATIS RNA, 11:16:00 TMA NEISSERIA NOT DETECTED NOT DETECTED N GONORRHOEAE RNA, 11:16:00 TMA [id number] SEE NOTE This test was 11:16:00 performed using the APTIMA COMBO2 Assay([employer] The analytical performance characteristics of this assay, when used to test SurePath specimens havebeen determined by [employer]. REPORT COMMENT:FASTING:UNKNO WNTest performed at [facility] [address] [address]Ninjgfyf: NAY SANDOVAL DO,MPH Advance Directives Directive Yes / No Effective Date File Name Unknown Encounters Encounter Practice Location Reason(s) Diagnoses Date Provider Care Team Description For Visit Members Baldemar [place] Mild hyperemesis Sobbing [facility] [place]. Provider: Martha DAWSON, for suprvsn of 8 [address] normal , [facility], 700 1522, [facility] [address], [address], [id number], [facility], [place], GIULIANA [place], tel:[phone] GI[place], [phone]. [id number], tel: . [phone] tel: [phone] Baldemar [place] Encntr screen for Blake Referring In Womens infections w sexl [place]. Provider: Martha DAWSON, mode of 8 [address] [facility], 700 1522, for screening for [facility] , [facility] Dr GIORDANO, [facility] 120, [address], [id number], for suprvsn of [place], normal , [place], [place], tel: first [phone]. [facility] , . tel: For Other Specified tel: [phone] Screening9 weeks gestation of [facility] Mild hyperemesis Chris-0 Blake Referring In Womens gravidarum8 weeks 8-201 Jeanette. Provider: Martha DAWSON, gestation of 8 [address] Medical [place]onna, [address], [place] [address], [facility] Dr GIORDANO, 120, [address], [id number], [place], [place], [place], tel: [phone]. , [place]. tel: tel: [phone] [facility] Chris-0 Blake In Womens 8-201 Jeanette. Martha DAWSON, 8 700 [address], [place] Dr Jing, [facility] GI[place]NA, 120, [id number], [place], [place], tel: [phone] , [place]. tel: [phone] [facility] Vomiting of Chris-0 Blake Referring In Womens , 2-201 Jeanette. Provider: Martha DAWSON, unspecifiedLess 8 [address] than 8 weeks Medical Deonna, 700 1522, gestation of [place] [facility] [place], , [facility] Dr GIORDANO, 120, [address], [id number], [place], [place], [place], tel: [phone]. , [place]. tel: tel: [phone] [facility] Irregular Menses Sep-2 Deonna Referring In Womens 0-201 Lilly. Provider: Martha DAWSON, 7 [address] Medical [place], [address] 15[address], [place] [address], [facility] Dr GIORDANO, 120, [address], [id number], [place], [place], [place], tel:[phone]. , [place]. tel:[phone] tel: [phone] Family History Family Member Diagnosis Age At [...] Insurance type Covered constitution party ID Authorization(s) [place] BL [id number] Social History Type Description Quantity Date Captured Alcohol Use Details No Caffeine Use Details coffee 2 cups per day Tobacco Use Status Never smoked tobacco Smoking Status Never smoker Non-Smoking Tobacco Use : No Details Available : No Details Available Details Vital Signs Date / Height Weight BMI Pulse Blood Temperature Respiratory Body Head BMI Time: Rate Pressure Rate Surface Circumference percentile Area 175.00 30.7 108/2018 lbs 9 mm[Hg] 10:33 kg/m AM eter (2) Chief Complaint And [...]
--- OUTSIDE RECORDS SUMMARY | 2018-06-20 04:06 | External Medical Summary | Continuity of Care Document ---
:1989 Author Organization [facility] Address [address] [place], [place] [phone] Phone Allergies, Adverse Reactions, Alerts Substance Reaction [...] stop) Clinical Status Mild hyperemesis gravidarum - Encounter for suprvsn of normal - , first trimester Vomiting of , unspecified Less than 8 weeks gestation of - Mild hyperemesis gravidarum - 8 weeks gestation of - Irregular Menses Encntr screen for infections w sexl - mode of transmiss Encounter for screening for oth - infec/parastc diseases Encounter for suprvsn of normal - , first trimester Encounter For Other Specified - Screening 9 weeks gestation of - Procedures Procedure Date OB US < 14 WKS, SINGLE FETUS Results Test Name Date and Time Measure [...] , Medical Deonna, [address] 1522, first trimester [place] [facility] [place] [address]O, [address], , [place]ai, [place], GIULIANA [place], tel: [place]NA, [phone], tel:+ US. [phone] tel: [phone] [facility] Encntr screen for Nov-1 Blake Referring In Womens infections w sexl 5-201 Jeanette. Provider: Martha DAWSON, mode of 8 [address] transmissEnclos [facility] Deonna, 700 1522, for screening for [facility] Jing, [facility] infec/parastc , [facility] Dr GIORDANO, [facility] 120, [address], , for suprvsn of [place], normal , [place], [place], tel: first [phone]. [address] [facility]. tel: For Other Specified tel: [phone] Screening9 weeks gestation of [facility] Mild hyperemesis Chris-0 Blake Referring In Womens gravidarum8 weeks 8-201 Jeanette. Provider: Martha DAWSON, gestation of 8 [address] Medical [place], [address] 15[address], [place] [address], [facility] Dr GIORDANO, 120, [address], , [place], [place] GIORDANO, tel:[phone]. , [place]. tel: tel: [phone] Baldemar [place] Chris-0 Blake In Womens 8-201 Jeanette. Martha DAWSON, 8 700 [address], [place] [address], [facility] [place]NA, 120, [id number], [place], tel:[phone] , [place]. tel: [phone] Baldemar [place] Vomiting of Chris-0 Blake Referring In Womens , 2-201 Jeanette. Provider: Health EUNICE, unspecifiedLess 8 [address] than 8 weeks Medical Deonna, 700 1522, gestation of [place], , [facility] Dr GIORDANO, 120, [address], [id number], [place], [facility], [place], tel: [phone]. , . tel: tel: [phone] Baldemar [place] Irregular Menses Sep- Deonna Referring In Womens 0-201 Lilly. Provider: Martha DAWSON, 7 700 [address] Medical [place], [address] 15[address], [place], , [facility] Dr GIORDANO, 120, [address], [id number], [place], [place], [place], tel: [phone]. , . tel: tel: [phone] Family History Family Member Diagnosis Age At [...] Insurance type Covered constitution party ID Authorization(s) [facility] [id number] Social History Type Description Quantity Date Captured [...]
--- OUTSIDE RECORDS SUMMARY | 2018-06-20 04:06 | External Medical Summary | Continuity of Care Document ---
:1989 Author Organization [facility] [facility] Address [address] [place], [place] [address] Phone Allergies, Adverse Reactions, Alerts Substance Reaction [...] For Visit Members Baldemar [place] Encounter for Mar-1 Blake Referring In Womens suprvsn of normal 9- Jeanette. Provider: Martha DAWSON, , second 8 [address] [id number] weeks Medical Deonna, 700 1522, gestation of [facility], , [facility] Dr GIORDANO, 120, [address], [id number], [place], [place], [place], tel: [phone]. , [place]. tel: tel: [phone] Baldemar eSymour Matern care for Mar-1 Blake Referring In Womens Ultrasound oth or susp poor 9- Jeanette. Provider: Martha DAWSON, fetl grth, 2nd 8 [address] tri, unsp18 weeks Medical Deonna, 700 1522, [facility], , [facility] Dr GIORDANO, 120, [address], , [place], [place], [place], tel:[phone]. , [place]. tel: tel: [phone] Baldemar [place] Feb-2 Blake In Womens 7- Jeanette. Martha DAWSON, 8 700 [address], [address] [place], 120, [id number], [place], [place], tel: [phone] , [place]. tel: [phone] Baldemar [place] Matern care for Feb-1 Blake Referring In Womens oth or susp poor 2-201 Jeanette. Provider: Martha DAWSON, fetl grth, 1st 8 [address] tri, unsp13 weeks Medical Deonna, 700 1522, gestation of [facility], , [facility] Dr GIORDANO, 120, [address], [id number], [place], [place], [place], tel: [phone]. , [place]. tel: tel: [phone] Baldemar [place] Mild hyperemesis Chris-1 Sobbing Referring In Womens gravidarumEncount 5-201 [place]. Provider: Martha DAWSON, er for suprvsn of 8 [address] normal , Medical Deonna, 700 1522, first trimester [facility] Jing [facility] Dr GIORDANO, [address], , [place], [place], [place], tel: [place], [phone]. [id number], tel: [place]. [phone] tel: [phone] Baldemar [place] Encntr screen for Nov- Blake Referring In Womens infections w sexl 5-201 Jeanette. Provider: Martha DAWSON, mode of 8 [address] transmissEncounte Medical Deonna, 700 1522, r for screening [facility], for oth , [facility] Dr GIORDANO, infec/parastc 120, [address], , diseasesEncounter [place], for suprvsn of [place], [place], tel: normal , [phone]. [facility] , . tel: trimesterEncounte tel: [phone] r For Other [id number] Specified Screening9 weeks gestation of [facility] Mild hyperemesis Chris-0 Blake Referring In Womens gravidarum8 weeks 8-201 Jeanette. Provider: Martha DAWSON, gestation of 8 700 [address] Medical [place]onna, [address], [address], [facility] Dr GIORDANO, 120, [address], [id number], [place], [place], tel: [phone]. , [place]. tel: tel: [phone] Baldemar [place] Vomiting of Chris-0 Blake Referring In Womens , 2-201 Jeanette. Provider: Martha DAWSON, unspecifiedLess 8 700 [address] than 8 weeks Medical Deonna, 700 1522, gestation of [facility], , [facility] Dr GIORDANO, 120, [address], [id number], [place], [place], [place], tel:[phone]. , [place]. tel: tel: [phone] Baldemar [place] Irregular Menses Sep-2 Deonna Referring In Womens 0-201 Lilly. Provider: Martha DAWSON, 7 700 [address] Medical Deonna, [address], [place] [address], [facility] [place], 120, [address], [id number], [place], [place], [place], tel: [phone]. , [place]. tel: tel: [phone] Family History Family Member Diagnosis Age At [...] Provider Payers Payer name Insurance type Covered alliance party ID Authorization(s) [facility] [id number] Social History Type Description Quantity Date Captured [...] Complete OB Ultrasound > 14 Weeks Ordered (93306) Date Type Problem Goal Intervention Status Start [...]
--- OUTSIDE RECORDS SUMMARY | 2018-06-20 04:06 | External Medical Summary | Continuity of Care Document ---
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 Provider: Martha DAWSON, , second 8 [id number] weeks Medical Deonna, 700 1522, [facility], , [facility] [address] [place], [address], [address], , Lion Seymour, GIULIANA GIORDANO, tel: [phone]. , [place]. tel: tel: [phone] Baldemar Seymour Matern care for Jan- Blake Referring In Womens Ultrasound oth or susp poor Jeanette. Provider: Martha DAWSON, fetl grth, 2nd 8 [address] tri, [id number] weeks Medical Deonna, 700 1522, [facility], , [facility] [address] [place], 120, [address], , Lion Seymour, GIULIANA GIORDANO, tel: [phone]. , [place]. tel: tel: [phone] Baldemar Seymour Matern care for Dec- Blake Referring In Womens oth or susp poor Jeanette. Provider: Martha DAWSON, fetl grth, 1st 8 [address] tri, [id number] weeks Medical Deonna, 700 1522, [facility], , [facility] [address] [place], 120, [address], [id number], Lion Seymour, GIULIANA GIORDANO, tel: [phone]. , [place]. tel: tel: [phone] Baldemar Seymour Mild hyperemesis Chris- Sobbing Referring In Womens gravidarumEncount 5-201 Chilango. Provider: Martha DAWSON, er for suprvsn of 8 [address] normal , Medical Deonna, 700 1522, first trimester [facility] [place], [facility], [place] [address] [place], [address], [id number], Shai, Seymour, Lion [place], tel: [place], [phone]. [phone], tel: [phone]. [phone] tel: [phone] Baldemar Seymour Encntr screen for Chris-1 Blake Referring In Womens infections w sexl 5-201 Jeanette. Provider: Martha DAWSON, mode of 8 [address] transmissEncounte Medical Deonna, 700 1522, r for screening [place], for oth , [facility] [address] [place]ORD[place]O, infec/parastc 120, [place] 120, , diseasesEncounter Lion Seymour, for suprvsn of GIULIANA GIORDANO, tel: normal , [phone]. [facility] , . tel: trimesterEncounte tel: [phone] r For Other [id number] Specified Screening9 weeks gestation of Associates Lion Mild hyperemesis Chris-0 Blake Referring In Womens gravidarum8 weeks 8-201 Jeanette. Provider: Martha DAWSON, gestation of 8 [address] Medical Deonna, 700 1522, [place] [address], [facility] [address] [place], 120, [address], [id number], Lion Seymour, GIULIANA GIORDANO, tel: [phone]. , [place]. tel: tel: [phone] Baldemar Seymour Vomiting of Chris-0 Blake Referring In Womens , 2-201 Jeanette. Provider: Martha DAWSON, unspecifiedLess 8 [address] than 8 weeks Medical Deonna, 700 1522, gestation of [place] [facility], , [facility] [address] [place], 120, [address], [id number], Lion Seymour, GIULIANA [place], tel: [phone]. , [place]. tel: tel: [phone] Baldemar Seymour Irregular Menses Sep-2 Deonna Referring In Womens 0-201 Lilly. Provider: Martha DAWSON, 7 [address] Medical Deonna, 700 1522, [place] [address], [place] [place] [address] [place], 120, [place] 120, [id number], Lion Seymour, GIULIANA, GIULIANA, tel:[phone] , [place]. tel: tel: [phone] Family History Family Member Diagnosis Age At [...] name Insurance type Covered republican ID Authorization(s) [facility] [id number] Social History Type Description Quantity Date Captured Alcohol Use Details No Caffeine Use Details Unknown Tobacco Use Status Unknown Smoking Status Never smoker Vital Signs Date / Height Weight BMI Pulse Blood Temperature Respiratory Body Head BMI Time: Rate Pressure Rate Surface Circumference percentile Area 178.20 31.5 109/69 2018 lbs 6 mm[Hg] 9:10 kg/m AM eter (2) Chief Complaint And Reason For Visit Unknown Chief Complaint And Reason For Visit Reason For Referral Reason For Referral Unknown Plan Of Care Date Type Action Status Appointment Marianne Leigh BOOKED Future Order: Radiology Order Complete OB Ultrasound > 14 Weeks Ordered ([id number]) Date Type Problem Goal Intervention Status Start [...]
[2018-06-20] MEDS ORDERED: METHYLERGONOVINE 0.2 MG/ML INJECTION IM PRN (04:42)
[2018-06-20] MEDS ORDERED: CARBOPROST 250 MCG/ML INJECTION IM PRN (04:42)
[2018-06-20] MEDS ORDERED: ACETAMINOPHEN 500 MG TABLET PO PRN ×2 (04:42→21:17)
[2018-06-20] MEDS ORDERED: MAG-AL + SIM ORAL LIQUID 30ml PO PRN (04:42)
[2018-06-20] MEDS ORDERED: CALCIUM CARBONATE Chewable 500mg TABLET PO PRN ×2 (04:42→21:17)
[2018-06-20] MEDS ORDERED: SALINE FLUSH 10ml SYRINGE IV PRN (04:42)
[2018-06-20] MEDS ORDERED: LIDOCAINE 1% (10mg/ml) 2mL INJ PF SDV ID PRN (04:42)
[2018-06-20] MEDS ORDERED: OXYTOCIN DRIP 30 UNIT/500 ML ML IV PRN (05:00)
[2018-06-20] MEDS: LR 1,000 ML IV PRN ×3 (05:07→19:03)
[2018-06-20] MEDS: D5LR 1,000 ML IV PRN ×2 (05:07→15:16)
[2018-06-20 05:15] VITALS: BMI 36.6
[2018-06-20] MEDS ORDERED: CEFAZOLIN PREMIX (MC ONLY) 2 GM/50 ML BAG IV ONE ×2 (05:15→19:42)
[2018-06-20] MEDS ORDERED: CEFAZOLIN 1 G in NS 100 ML IV SCH (13:15)
--- NOTE | 2018-06-20 16:24 | Anesthesia Preoperative Report ---
Anesthesia Epidural/Spinal Rec - Date and Time Date: 06/20/18 Procedure: Labor Epidural Plan: Epidural - Vital Signs Vital Signs: Temperature 98.1 F 06/20/18 05:10 Pulse Rate 80 06/20/18 05:10 Respiratory Rate 20 06/20/18 05:10 Blood Pressure 128/80 06/20/18 05:10 Pulse Oximetry 97 06/20/18 05:10 /Para: P:0 - Medictaions & Allergies Inpatient Medications: Current Medications Acetaminophen (Tylenol) 500 - 1,000 mg PO Q4H PRN PRN Reason: Pain Al Hydroxide/Mg Hydroxide (Maalox Plus) 30 ml PO Q3H PRN PRN Reason: Indigestion Calcium Carbonate (Tums) 500 - 1,000 mg PO Q2H PRN PRN Reason: Indigestion Carboprost Tromethamine (Hemabate) 250 mcg IM O PRN PRN Reason: .Downtime Lactated Ringer's (Lactated Ringers) 1,000 mls @ 999 mls/hr IV .Q1H1M PRN Last Admin: 06/20/18 11:34 Dose: 999 mls/hr Cefazolin Sodium 1 g/ Sodium (Chloride) 100 mls @ 200 mls/hr IV Q8H IFTIKHAR Last Infusion: 06/20/18 14:05 Dose: Infused Dextrose/Lactated Ringer's (Dextrose 5%-Lactated Ringers) 1,000 mls @ 125 mls/ hr IV .Q8H PRN PRN Reason: Labor Last Admin: 06/20/18 15:16 Dose: 125 mls/hr Oxytocin (Pitocin Drip) 30 unit in 500 mls @ 2 mls/hr IV .Q24H PRN; Protocol PRN Reason: Induction/Augmentation Last Admin: 06/20/18 05:08 Dose: 2 mls/hr Lidocaine HCl (Xylocaine-Mpf 1% Vial) 0.2 mg ID O PRN PRN Reason: IV Start Methylergonovine Maleate (Methergine) 0.2 mg IM O PRN Misoprostol (Cytotec) 800 mcg OH ONCE PRN Sodium Chloride (Iv Flush) 10 - 80 ml IV PRN PRN PRN Reason: Flushing Allergies/Adverse Reactions: Allergies Allergy/AdvReac Type Severity Reaction Status Date / Time Penicillins Allergy Intermediate RASH Verified 06/20/18 05:22 - Home Medications Home Medications: Home Medications Medication Instructions Recorded Confirmed Type Pnv No.95/Ferrous Fum/Folic AC 1 tab PO DAILY 06/20/18 06/20/18 History [ Tablet] - Medical History Respiratory: DENIES: Asthma, Bronchitis, Chronic Obstructive Pulmonary Disease (COPD), Dyspnea, Orthopnea, Pulmonary Embolism, Pneumonia, Upper Respiratory Infection, Pulmonary Edema, Sleep Apnea, Tuberculosis, Other Cardiovascular: DENIES: Abnormal EKG, Angina, Arrhythmia, Congestive Heart Failure, Coronary Artery Disease, Heart Murmur, Hypertension, Hypotension, High Cholesterol, Myocardial Infarction, Rheumatic Fever, Valvular Heart Disease, Other Gastrointestional: Reports: Gastroesophageal Reflux Disease (with ) Neuro/Musculoskeletal: Denies: Back Problems, Cerebrovascular Accident, Depression, Headaches, Loss of Consciousness, Muscle Weakness, Neuromuscular Disorder, Paralysis, Paresthesia, Syncope, Seizures, Other Renal/Endocrine: DENIES: Diabetes Mellitus Type 1, Diabetes Mellitus Type 2, Renal Failure, Dialysis, Thyroid Disease, Weight Loss, Weight Gain, Other Other History: Reports: Now (JOCELINE: June 23, 2018) Anesthesia Reactions: nausea and vomiting - Surgical History HEENT Surgeries: Reports: Ear Surgery Reproductive Surgery/Treatment: DENIES: Section Anesthesia Reactions: Nausea and Vomiting Hx Family Anesthesia Reaction: No History of Motion Sickness: No - Social History Smoking Status: Never smoker - Pertinent Findings Lab Data: CBC and BMP 06/20/18 04:55 - Airway Assessment Mallampati Score: II TMD: 3 Fingerbreadths Neck Extension: fair Overall Assessment: may be difficult intubation - ASA ASA Score: 2 - Discussion Discussion: Discussed risks/options/alternatives of anesthesia and questions answered. Patient consents. Nursing pain assessment noted. Anesthesia Discussion: spouse Attestation Statement: Prior to the delivery of any anesthetic medication, I examined the patient, developed the plan, obtained the patient's consent and discussed the risk and benefits of the procedure with the patient/guardian.
[2018-06-20] MEDS ORDERED: CITRIC ACID/SODIUM CITRATE 30ml PO ONE (19:42)
[2018-06-20] MEDS ORDERED: FAMOTIDINE PB 20 MG/50 ML BAG IV ONE (19:42)
[2018-06-20] MEDS ORDERED: TRANEXAMIC ACID 1,000 MG in NS 100 ML IV ONE (19:44)
[2018-06-20] MEDS ORDERED: AZITHROMYCIN IV 500 MG in NS 250ml 250 ML IV SCH (19:45)
--- NOTE | 2018-06-20 19:48 | OB/GYN Progress Note ---
- Pain Control Pain control: Tolerating well - Pelvic Exam Dilation (cm): 4 Effacement (%): 70 station: -3 Amniotic membrane status: Ruptured - Contractions Monitor mode: Internal Contraction frequency: 2 Contraction pattern: Regular Contraction intensity: Moderate - Status status: Category l - Assessment and Plan Assessment: induction ongoing Plan: (Failure to progress. Pitocin to a max of 32u No cervical change since rodriguez bulb came out. ) Comments: Discussed R/B/A to procedure including infection, injury to bowel/bladder/infant , bleeding with then need for transfusion and . Questions elicited and answered.
[2018-06-20] MEDS ORDERED: MORPHINE SULFATE PF 5mg/10ml INJ (Duramorph) ONE ×2 (20:19)
[2018-06-20] MEDS ORDERED: EPHEDRINE 50mg/ml INJECTION ONE (20:19)
[2018-06-20] MEDS ORDERED: ONDANSETRON 4 MG/2 ML INJECTION ONE (20:19)
[2018-06-20] MEDS ORDERED: FentaNYL 100 MCG/2 ML INJECTION ONE (20:19)
[2018-06-20] MEDS ORDERED: LIDOCAINE 1% (10mg/ml) 30ml SDV INJ ONE (20:32)
[2018-06-20] MEDS ORDERED: BUPIVACAINE 0.75%/DEXTROSE 8.5% SPINAL 2 ML AMPULE IJ ONE (20:32)
[2018-06-20] MEDS ORDERED: HYDROCODONE/APAP 5mg/325mg TABLET PO PRN (21:17)
[2018-06-20] MEDS ORDERED: DiphenhydrAMINE 25 MG CAPSULE PO PRN (21:17)
[2018-06-20] MEDS ORDERED: ONDANSETRON ODT 4 MG TABLET PO PRN (21:17)
[2018-06-20] MEDS ORDERED: SIMETHICONE 80 MG CHEWABLE TABLET PO PRN (21:17)
[2018-06-20] MEDS ORDERED: HYDROCORTISONE 2.5% CREAM 30gm RECTALLY PRN (21:17)
[2018-06-20] MEDS ORDERED: OXYTOCIN BOLUS BAG 30 UNIT/500 ML ML IV SCH (21:30)
[2018-06-20] MEDS ORDERED: OXYTOCIN DRIP 30 UNIT/500 ML ML IV SCH (21:30)
[2018-06-20] MEDS ORDERED: D5LR 1,000 ML IV SCH (21:30)
[2018-06-20] MEDS ORDERED: NALBUPHINE 10 MG/ML INJECTION IVP PRN (21:39)
[2018-06-20] MEDS ORDERED: NALOXONE 2 MG/2 ML INJECTION PFS IVP PRN (21:39)
[2018-06-20] MEDS ORDERED: ONDANSETRON 4 MG/2 ML INJECTION IVP PRN (21:39)
[2018-06-20] MEDS ORDERED: NOZIN NASAL SWAB NAS SCH (22:00)
[2018-06-20] MEDS: IBUPROFEN 800 MG TABLET PO PRN (22:36)
[2018-06-21] MEDS ORDERED: Oxycodone/Acetaminophen 5/325 1 TAB PO PRN (02:47)
--- NOTE | 2018-06-21 08:26 | Anesthesia Postoperative Note ---
- Date and Time Date: 06/21/18 Time: 08:25 - Status Patient Participated in Evaluation: Patient Participated in Person Vital Signs: Temperature 97.1 F 06/21/18 05:46 Pulse Rate 62 06/21/18 05:46 Respiratory Rate 16 06/21/18 05:46 Blood Pressure 133/81 06/21/18 05:46 Pulse Oximetry 99 06/21/18 05:46 Respiratory Function: Airway Patent Mental Status: Alert and Oriented Pain Intensity: 0 Hydration: Taking PO Fluids Nausea/Vomiting: None Complications During Recover: None Apparent - Follow-Up Instructions Instructions: Per Surgeon
--- NOTE | 2018-06-21 08:27 | OB/GYN Progress Note ---
OB-PP Progress Note - General PPD1 Maternal Group B Strep: Positive Maternal Rh: positive Maternal Rubella Status: Immune - Subjective Date: 06/21/18 Lochia: Minimal Pain: controlled Voiding: rodriguez still in place Nausea or Vomiting Present: No - Objective Vital Signs: Last Vital Signs Temp 97.1 F 06/21/18 05:46 Pulse 62 06/21/18 05:46 Resp 16 06/21/18 05:46 BP 133/81 06/21/18 05:46 Pulse Ox 99 06/21/18 05:46 General: alert and oriented Abdomen: fundus firm, non-tender Incision: clean, no erythema, dry Extremities: non-tender Laboratory: Laboratory Results - last 24 hr 06/21/18 05:52 WBC 12.4 H RBC 3.41 L Hgb 9.7 L D Hct 29.1 L D MCV 85.3 MCH 28.4 MCHC 33.3 RDW Std Deviation 40.1 Plt Count 242 MPV 10.2 - Assessment Assessment: Primary C/S, Anemia, GBS positive - Plan Plan: routine care, iron
[2018-06-21] MEDS: MetroNIDAZOLE 500 MG TABLET PO SCH ×3 (09:07→21:08)
[2018-06-21] MEDS: DOCUSATE CALCIUM 240 MG CAPSULE PO SCH (09:07)
[2018-06-21] MEDS: IBUPROFEN 800 MG TABLET PO PRN ×2 (09:08→18:45)
[2018-06-21] MEDS: IRON POLYSACCHARIDE COMPLEX 150 MG CAPSULE PO SCH (09:08)
[2018-06-21] MEDS: SIMETHICONE 80 MG CHEWABLE TABLET PO SCH ×4 (09:09→21:08)
--- NOTE | 2018-06-21 10:20 | Operative Note ---
DATE OF SURGERY 06/20/2018 PREOPERATIVE DIAGNOSIS 1. 27-year-old 2, para 0 at 39 weeks 4 days gestational age. 2. Arrest of dilation and descent. POSTOPERATIVE DIAGNOSIS 1. 27-year-old 2, para 0 at 39 weeks 4 days gestational age. 2. Arrest of dilation and descent. PROCEDURE Primary low transverse section. SURGEON Jeanette Blake MD AUTO ELECTRICAL TECHNICIAN Chilango Moore, DO ANESTHESIA Spinal by Daren Woods CRNA COMPLICATIONS None EBL 800 mL FINDINGS Viable male , cephalic OT position, Apgars 8/9. Weight 3704 grams, name "Dustin". Baby was also noted to have hypospadias at delivery. Normal appearing uterus, tubes and ovaries. INDICATIONS Marianne presented to Maternal/Child with spontaneous rupture of membranes and her cervix was still closed. She was started on Pitocin. I asked Dr. Moore to place a Tolentino bulb for cervical ripening. That finally came out several hours later. She never changed her cervix past 3.5 cm and -3 station despite adequate contractions documented with an IUPC. She was consented for a C- section. DESCRIPTION OF PROCEDURE The patient was taken to the operating room where anesthesia was obtained. She was placed in the dorsal supine position with a leftward tilt and a Tolentino catheter was placed. She was prepared and draped in the normal sterile fashion. A Pfannenstiel skin incision was created and carried down to the fascia. The fascia was incised in the midline and extended laterally with the Linares scissors. The fascia was elevated and the underlying rectus muscles were dissected off. The peritoneum was entered with a combination of blunt and sharp dissection. This was extended superiorly and inferiorly with good visualization of the bladder. The bladder blade was inserted. The bladder flap was created sharply with the Metzenbaum scissors. The bladder blade was reinserted. The lower uterine segment was incised in a transverse fashion layer by layer with a scalpel and bluntly extended. The 's head was carefully delivered. A nuchal cord x2 was reduced. The nose and mouth were suctioned. The cord was clamped and cut. The infant was handed to Dr. Sandoval who was asked to attend due to prolonged rupture of membranes. The placenta delivered spontaneously. The uterus was exteriorized and cleared of all clots and debris. The uterine incision was closed with running locked 0 Monocryl. She still had atony so she was given Methergine and TXA. A second layer of the 0 Monocryl was placed to imbricate the incision and good hemostasis was noted. The bladder flap was closed with 3-0 Vicryl. The uterus was returned to the abdomen. The gutters were cleared of all clots and debris. The uterine incision was inspected one final time and still noted to be hemostatic. The peritoneum was closed with running 2-0 Vicryl. Hemostasis was obtained in the rectus muscles with cautery. The fascia was closed with running 0 Vicryl. Hemostasis was obtained in the subcutaneous tissue with the cautery. Karol's fascia was closed with running 2-0 chromic. The skin was closed with 4-0 Vicryl in a subcuticular manner. Dermabond was placed. Sponge, sharp and instrument counts were correct. The patient tolerated the procedure well and was taken to the recovery room in good condition. ADRIANA
[2018-06-21] MEDS ORDERED: ACETAMINOPHEN 500 MG TABLET PO PRN ×2 (20:56→21:05)
[2018-06-22] MEDS: IBUPROFEN 800 MG TABLET PO PRN ×2 (05:45→13:12)
--- NOTE | 2018-06-22 08:43 | OB/GYN Progress Note ---
OB-PP Progress Note - General PPD2 Maternal Group B Strep: Positive Maternal Rh: positive Maternal Rubella Status: Immune - Subjective Date: 06/22/18 Lochia: Minimal Pain: controlled Voiding: voiding - Objective Vital Signs: Last Vital Signs Temp 98.3 F 06/22/18 04:00 Pulse 74 06/22/18 04:00 Resp 16 06/22/18 04:00 BP 124/82 06/22/18 04:00 Pulse Ox 97 06/22/18 04:00 General: alert and oriented Abdomen: fundus firm, non-tender Incision: clean, no erythema, dry Extremities: non-tender - Assessment Assessment: Primary C/S - Plan Plan: routine care, discharge home, continue PNV
[2018-06-22] MEDS: DOCUSATE CALCIUM 240 MG CAPSULE PO SCH (08:58)
[2018-06-22] MEDS: SIMETHICONE 80 MG CHEWABLE TABLET PO SCH ×2 (08:59→13:12)
[2018-06-22] MEDS: IRON POLYSACCHARIDE COMPLEX 150 MG CAPSULE PO SCH (08:59)
[2018-06-22] MEDS: MetroNIDAZOLE 500 MG TABLET PO SCH ×2 (08:59→16:42)
[2018-06-22 13:23] VITALS: O2SAT 98
[2018-06-22 15:41] VITALS: BP 135/87; PULSE 83; RESP 18; TEMP 98.3
== END 2018-06-22 17:32 | disposition home or self-care (01) | DRG 766 ==
LOC: OBOBS 03:59 → MC 04:01
PROVIDERS: ADMIT Obstetrics & Gynecology; ATTEND Obstetrics & Gynecology